=== PATIENT | male | born 1940 | race Caucasian/White ===

== ENCOUNTER 2024-12-25 23:43 | Inpatient (IN) | payer MEDICARE, OTHER, SELFPAY ==
[2024-12-25 23:49] VITALS: BP 126/67; PULSE 112; RESP 18; TEMP 36.2; O2SAT 89; BMI 20.6
[2024-12-26] VITALS (44 sets, daily range): BP systolic 65–162; BP diastolic 37–81; PULSE 90–136; RESP 18–48; TEMP 36.4–37.6; O2SAT 76–96
--- NOTE | 2024-12-26 01:03 | ED_ITS ---
Documented by User: FAY Shelley 12/26/24 01:21 HPI - Abdominal Pain 2 General: Chief Complaint: Abdominal Pain Stated Complaint: ABD PAIN Time Seen by Provider: 12/26/24 00:49 Source: patient Mode of arrival: EMS Limitations: no limitations History of Present Illness: Patient is a nice 84-year-old male who presents to ED today with a complaint of diffuse abdominal pain that started 4 to 5 hours ago. Patient states pain has been significant and constant since onset. He states he has not had any vomiting. He reports previous abdominal surgery of a gastric resection for cancer. No other abdominal surgeries. Patient states he is not having much in the way of bowel movements but states he is also not been eating very much. No fevers. No recent illness. Patient is normally on oxygen-roughly 3L. States he has not had a increase in this at home. He is on 4 -5L during my examination and satting anywhere from 90-96 depending on the waveform but RN was able to titrate this down to his baseline shortly after. He does not feel short of breath. He is not having a cough. States he lives with his at home in a duplex. MD elicited complaint: abdominal pain Pertinent past history: other (gastric cancer) Onset (ago): hour(s) Pain Consistency: constant Location: Diffuse Severity: severe Quality: sharp Radiation: none Migration to: no migration Exacerbating factors: nothing Relieving factors: nothing Associated Symptoms: Denies chills, GI cramping, diarrhea, dysuria, fever(s), heartburn, nausea, syncope and vomiting Related Data Allergies Allergy/AdvReac Type Severity Reaction Status Date / Time No Known Allergies Allergy Verified 12/25/24 23:55 Review of Systems 2 Const: Denies: fever(s), chills, body aches, fatigue or malaise Eyes: Denies: change in vision or blurry vision Card: Denies: chest pain, palpitations, irregular heart rhythm, lightheadedness, syncope or dyspnea on exertion Resp: Denies: dyspnea, productive cough or pain on inspiration GI: Reports: abdominal pain; Denies: nausea, vomiting, heartburn, diarrhea, GI cramping or rectal pain : Denies: flank pain, difficulty urinating or dysuria Musc: Denies: neck pain, back pain, extremity pain, extremity swelling or joint pain Skin/Breast: Denies: rash Neuro: Denies: headache(s) or dizziness Physical Exam 2 Const: COMMON NORMALS: no acute distress, average body habitus, patient oriented x3, no limitations, healthy appearing, alert and well nourished G ENERAL APPEARANCE: cooperative ORIENTATION/CONSCIOUSNESS: Yes awake, Yes oriented to person, Yes oriented to place and Yes oriented to time HENMT: COMMON NORMALS: normocephalic and atraumatic HEAD & SCALP: normal to inspection, normocephalic and atraumatic Neck/C-Spine: COMMON NORMALS: full ROM, no lymphadenopathy, supple and no meningeal signs Chest: COMMONS NORMALS: normal inspection of the chest Resp: COMMON NORMALS: normal respiratory effort and clear to auscultation bilaterally AUSCULTATION: clear to auscultation bilaterally Cardio: COMMON NORMALS: regular rate RATE: regular rate and tachycardic GI: COMMON NORMALS: Normal to inspection, nondistended, normoactive bowel sounds present, Soft to palpation, No hepatosplenomegaly present and no masses INSPECTION: Yes normal to inspection AUSCULTATION: Yes normoactive bowel sounds PALPATION: Yes Soft to palpation, Yes Tenderness to palpation present (GI) (diffusely), Yes Rigid due to palpation and Yes No hepatosplenomegaly present : COMMON NORMALS: Yes no CVA tenderness BLADDER/KIDNEY EXAM: Yes no CVA tenderness Back/Pelvis: COMMON NORMALS: no CVA tenderness and thoracic and lumbar spine normal to inspection Extremity: COMMON NORMALS: normal to inspection, capillary refill normal, no clubbing, cyanosis or edema, no calf tenderness and no pedal edema NARRATIVE EXTREMITY EXAM: feet are cool to the touch but pulses easily palpated GENERAL: Yes normal exam except as noted Neuro: COMMON NORMALS: patient oriented x3, moves all extremities, no focal motor deficits and no sensory deficits noted SENSORIUM/ORIENTATION: Yes alert, Yes oriented to person, Yes oriented to place and Yes oriented to time MENINGEAL SIGNS: Yes no meningeal signs Skin: COMMON NORMALS: no rashes or lesions noted GENERAL SKIN EXAM: no rashes or lesions noted Course 2 Vital Signs: Vital signs: Vital Signs Temperature 97.2 F L 12/25/24 23:49 Pulse Rate 112 H 12/26/24 02:27 Respiratory Rate 30 H 12/26/24 02:27 Blood Pressure 162/73 12/26/24 02:27 Pulse Oximetry 90 12/26/24 02:27 Oxygen Delivery Me thod Nasal Cannula 12/26/24 02:27 Oxygen Flow Rate 3 12/26/24 02:27 MDM - Abdominal Pain Lab Data 12/26/24 00:21 12/26/24 00:21 Labs/Radiology: Radiology Impressions Chest X-Ray 12/26/24 01:03 IMPRESSION: Multifocal bilateral pneumonia. Chest/Abdomen/Pelvis CT 12/26/24 01:38 IMPRESSION: 1. No pulmonary embolism. 2. 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 3. Extensive right lower lobe infiltrate with small airways inflammatory pulmonary nodules right upper lobe possibly from aspiration. IMPRESSION: Small bowel obstruction. Recommend surgical consultation. Laboratory Results WBC 4.40 10^3/uL (3.29-11.43) 12/26/24 00:21 RBC 3.65 10^6/uL (3.85-5.65) L 12/26/24 00:21 Hgb 11.30 g/dL (11.27-16.99) 12/26/24 00:21 Hct 36.3 % (37-53) L 12/26/24 00:21 MCV 99.5 fl (82-101) 12/26/24 00:21 MCH 31.0 pg (27-33) 12/26/24 00:21 MCHC 31.1 g/dL (30-55) 12/26/24 00:21 RDW 13.8 % (12.1-15.1) 12/26/24 00:21 Plt Count 322 10^3/cmm (157-399) 12/26/24 00:21 MPV 9.9 fL (7.4-10.4) 12/26/24 00:21 Neut % (Auto) 89.7 % 12/26/24 00:21 Lymph % (Auto) 7.3 % 12/26/24 00:21 [place] % (Auto) 2.3 % 12/26/24 00:21 Eos % (Auto) 0.0 % 12/26/24 00:21 Baso % (Auto) 0.5 % 12/26/24 00:21 Neut # (Auto) 3.95 10^3/uL (1.8-7.7) 12/26/24 00:21 Lymph # (Auto) 0.3 10^3/uL (0.8-4.8) L 12/26/24 00:21 [place] # (Auto) 0.1 10^3/uL (0.2-0.9) L 12/26/24 00:21 Eos # (Auto) 0.0 10^3/uL (0.0-0.8) 12/26/24 00:21 Baso # (Auto) 0.0 10^3/uL (0.0-0.1) 12/26/24 00:21 Nucleated RBC % (auto) 0 % 12/26/24 00:21 Nucleated RBCs # 0.0 /100WBC 12/26/24 00:21 Specimen Type Arterial 12/26/24 02:55 Sample Site Radial, left 12/26/24 02:55 ABG pH 7.35 (7.35-7.45) 12/26/24 02:55 ABG pCO2 33.4 mmHg (35-45) L 12/26/24 02:55 ABG pO2 55.2 mmHg (80.0-100.0) L 12/26/24 02:55 ABG HCO3 18.3 mmol/L (22-26) L 12/26/24 02:55 ABG Base Excess -6.5 mmol/L (-2.0-2.0) L 12/26/24 02:55 Efra Test Pos 12/26/24 02:55 Hematocrit 36.8 % (42-52) L 12/26/24 02:55 O2 Delivery Device Nc 12/26/24 02:55 O2 Liters/Min 5.0 % 12/26/24 02:55 Machine Stone Polisher ID [id number] 12/26/24 02:55 Sodium 134 mmol/L (136-145) L 12/26/24 00:21 Potassium 3.4 mmol/L (3.5-5.1) L 12/26/24 00:21 Chloride 94 mmol/L (98-107) L 12/26/24 00:21 Carbon Dioxide 18 mmol/L (22-29) L 12/26/24 00:21 Anion Gap 25.4 (5-19) H 12/26/24 00:21 BUN 15 mg/dL (8-23) 12/26/24 00:21 Creatinine 0.7 mg/dL (0.7-1.2) 12/26/24 00:21 GFR Calculation Not Reportable 12/26/24 00:21 Glucose 215 mg/dL (65-115) H 12/26/24 00:21 Calculated Osmolality 285 mOsm/kg (285-295) 12/26/24 00:21 Lactic Acid 3.1 mmol/L (0.5-2.2) H 12/26/24 00:21 Calcium 8.9 mg/dL (8.5-10.5) 12/26/24 00:21 Total Bilirubin 0.4 mg/dL (0.15-1.2) 12/26/24 00:21 AST 20 U/L (0-40) 12/26/24 00:21 ALT 17 U/L (0-41) 12/26/24 00:21 Alkaline Phosphatase 115 U/L (40-130) 12/26/24 00:21 Total Protein 6.3 g/dL (6.6-8.7) L 12/26/24 00:21 Albumin 3.3 g/dL (3.5-5.2) L 12/26/24 00:21 Globulin 3.0 g/dL (1.3-4.6) 12/26/24 00:21 Lipase 165 U/L (13-60) H 12/26/24 00:21 Procalcitonin 0.66 ng/mL (0-0.5) H 12/26/24 00:21 Amorphous Sediment Not Reportable 12/26/24 02:50 Coronavirus (PCR) Negative (Negative) 12/26/24 02:30 Influenza A (PCR) Negative (Negative) 12/26/24 02:30 Influenza Type B (PCR) Negative (Negative) 12/26/24 02:30 RSV (PCR) Negative (Negative) 12/26/24 02:30 Discharge Plan Discharge Patient Disposition: Admitted As Inpatient Admit Provider: Pamela Emerson Clinical Impression: Small bowel obstruction, Abdominal pain, Pneumonia Clinical Impression: (Ruled Out): Pancreatitis Condition: Serious Coding Level of Care Code ED Administrative Office Specialist for Chg Fwd Documented by User: Rei Villarreal DO 12/26/24 03:19 HPI - Abdominal Pain 2 General: Chief Complaint: Abdominal Pain Stated Complaint: ABD PAIN Time Seen by Provider: 12/26/24 00:49 Related Data Allergies Allergy/AdvReac Type Severity Reaction Status Date / Time No Known Allergies Allergy Verified 12/25/24 23:55 Course 2 Vital Signs: Vital signs: Vital Signs Temperature 97.2 F L 12/25/24 23:49 Pulse Rate 112 H 12/26/24 02:27 Respiratory Rate 30 H 12/26/24 02:27 Blood Pressure 162/73 12/26/24 02:27 Pulse Oximetry 90 12/26/24 02:27 Oxygen Delivery Me thod Nasal Cannula 12/26/24 02:27 Oxygen Flow Rate 3 12/26/24 02:27 MDM - Abdominal Pain Medical Decision Making 84-year-old patient recently seen by Mrs. Anne?MIGUEL Serrano. I agree with her history, evaluation, and initial workup. The patient is tachycardic, he has an increased oxygen demand above baseline. Chest x-ray showed multifocal bilateral pneumonia worse on the right, particularly in the base. Blood glucose is 215. Bicarbonate is 18, lactate is 3.1. He is given a sepsis bolus. CT of the chest shows similar findings to the above, with small bowel obstruction findings to the mid small bowel apparent on belly CT. NG tube is placed. Spoke with surgery. Requests maintenance fluid, n.p.o., admission to medicine, and he will consult. Medicine has agreed to admit the patient. He is given Zosyn for pneumonia. Respiratory panel does not reveal COVID, flu, or RSV. Lab Data 12/26/24 00:21 12/26/24 00:21 Labs/Radiology: Radiology Impressions Chest X-Ray 12/26/24 01:03 IMPRESSION: Multifocal bilateral pneumonia. Chest/Abdomen/Pelvis CT 12/26/24 01:38 IMPRESSION: 1. No pulmonary embolism. 2. 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 3. Extensive right lower lobe infiltrate with small airways inflammatory pulmonary nodules right upper lobe possibly from aspiration. IMPRESSION: Small bowel obstruction. Recommend surgical consultation. Laboratory Results WBC 4.40 10^3/uL (3.29-11.43) 12/26/24 00:21 RBC 3.65 10^6/uL (3.85-5.65) L 12/26/24 00:21 Hgb 11.30 g/dL (11.27-16.99) 12/26/24 00:21 Hct 36.3 % (37-53) L 12/26/24 00:21 MCV 99.5 fl (82-101) 12/26/24 00:21 MCH 31.0 pg (27-33) 12/26/24 00: MCHC 31.1 g/dL (30-55) 12/26/24 00: RDW 13.8 % (12.1-15.1) 12/26/24 00:21 Plt Count 322 10^3/cmm (157-399) 12/26/24 00:21 MPV 9.9 fL (7.4-10.4) 12/26/24 00:21 Neut % (Auto) 89.7 % 12/26/24 00: Lymph % (Auto) 7.3 % 12/26/24 00: [place] % (Auto) 2.3 % 12/26/24 00: Eos % (Auto) 0.0 % 12/26/24 00: Baso % (Auto) 0.5 % 12/26/24 00:21 Neut # (Auto) 3.95 10^3/uL (1.8-7.7) 12/26/24 00:21 Lymph # (Auto) 0.3 10^3/uL (0.8-4.8) L 12/26/24 00:21 [place] # (Auto) 0.1 10^3/uL (0.2-0.9) L 12/26/24 00:21 Eos # (Auto) 0.0 10^3/uL (0.0-0.8) 12/26/24 00:21 Baso # (Auto) 0.0 10^3/uL (0.0-0.1) 12/26/24 00:21 Nucleated RBC % (auto) 0 % 12/26/24 00:21 Nucleated RBCs # 0.0 /100WBC 12/26/24 00:21 Specimen Type Arterial 12/26/24 02:55 Sample Site Radial, left 12/26/24 02:55 ABG pH 7.35 (7.35-7.45) 12/26/24 02:55 ABG pCO2 33.4 mmHg (35-45) L 12/26/24 02:55 ABG pO2 55.2 mmHg (80.0-100.0) L 12/26/24 02:55 ABG HCO3 18.3 mmol/L (22-26) L 12/26/24 02:55 ABG Base Excess -6.5 mmol/L (-2.0-2.0) L 12/26/24 02:55 Efra Test Pos 12/26/24 02:55 Hematocrit 36.8 % (42-52) L 12/26/24 02:55 O2 Delivery Device Nc 12/26/24 02:55 O2 Liters/Min 5.0 % 12/26/24 02:55 Machine Stone Polisher ID [id number] 12/26/24 02:55 Sodium 134 mmol/L (136-145) L 12/26/24 00:21 Potassium 3.4 mmol/L (3.5-5.1) L 12/26/24 00:21 Chloride 94 mmol/L (98-107) L 12/26/24 00:21 Carbon Dioxide 18 mmol/L (22-29) L 12/26/24 00:21 Anion Gap 25.4 (5-19) H 12/26/24 00:21 BUN 15 mg/dL (8-23) 12/26/24 00:21 Creatinine 0.7 mg/dL (0.7-1.2) 12/26/24 00:21 GFR Calculation Not Reportable 12/26/24 00:21 Glucose 215 mg/dL (65-115) H 12/26/24 00:21 Calculated Osmolality 285 mOsm/kg (285-295) 12/26/24 00:21 Lactic Acid 3.1 mmol/L (0.5-2.2) H 12/26/24 00:21 Calcium 8.9 mg/dL (8.5-10.5) 12/26/24 00:21 Total Bilirubin 0.4 mg/dL (0.15-1.2) 12/26/24 00:21 AST 20 U/L (0-40) 12/26/24 00:21 ALT 17 U/L (0-41) 12/26/24 00:21 Alkaline Phosphatase 115 U/L (40-130) 12/26/24 00:21 Total Protein 6.3 g/dL (6.6-8.7) L 12/26/24 00:21 Albumin 3.3 g/dL (3.5-5.2) L 12/26/24 00:21 Globulin 3.0 g/dL (1.3-4.6) 12/26/24 00:21 Lipase 165 U/L (13-60) H 12/26/24 00:21 Procalcitonin 0.66 ng/mL (0-0.5) H 12/26/24 00:21 Amorphous Sediment Not Reportable 12/26/24 02:50 Coronavirus (PCR) Negative (Negative) 12/26/24 02:30 Influenza A (PCR) Negative (Negative) 12/26/24 02:30 Influenza Type B (PCR) Negative (Negative) 12/26/24 02:30 RSV (PCR) Negative (Negative) 12/26/24 02:30 All radiology interpretation(s) finalized by discharge Discharge Plan Discharge Patient Disposition: Admitted As Inpatient Admit Provider: Pamela Emerson Clinical Impression: Small bowel obstruction, Abdominal pain, Pneumonia Clinical Impression: (Ruled Out): Pancreatitis Condition: Serious Coding Level of Care Code ED Administrative Office Specialist for Jackson De La Torre
--- NOTE | 2024-12-26 01:03 | XRR_ITS ---
PROCEDURE INFORMATION: Exam: XR Chest Exam date and time: 12/26/2024 1:32 AM Age: 84 years old Clinical indication: Shortness of breath; Prior surgery; Surgery date: 6+ months; Surgery type: Chest port. Gastric resection; Patient HX: SOB with hypoxia. History of gastric cancer. ; Additional info: Ab pain TECHNIQUE: Imaging protocol: Radiologic exam of the chest. Views: 1 view. COMPARISON: No relevant prior studies available. FINDINGS: Tubes, catheters and devices: Chest port. Lungs: Multifocal bilateral consolidation, throughout the right lung as well as at left lower lobe. Pleural spaces: No pleural effusion. No pneumothorax. Heart/Mediastinum: No cardiomegaly. Bones/joints: No acute findings. XR/XR chest 1V portable [id number] IMPRESSION: Multifocal bilateral pneumonia.
[2024-12-26 01:13] LABS: Basophils % 0.5 %; Hematocrit 36.3 % (37-53); Lymphocytes # 0.3 10^3/uL (0.8-4.8); Lymphocytes % 7.3 %; Mean Corpuscular HGB Conc 31.1 g/dL (30-55); Mean Corpuscular Volume 99.5 fl (82-101); Mean Platelet Volume 9.9 fL (7.4-10.4); Monocytes # 0.1 10^3/uL (0.2-0.9); Monocytes % 2.3 %; Neutrophils # 3.95 10^3/uL (1.8-7.7); Neutrophils % 89.7 %; Nucleated Red Blood Cells % 0 %; Platelet Count 322 10^3/cmm (157-399); Red Blood Count 3.65 10^6/uL (3.85-5.65); Red Cell Distribution Width 13.8 % (12.1-15.1)
[2024-12-26] MEDS: morphine 4 mg/mL SDV 1 mL IVP (01:14)
[2024-12-26] MEDS: ondansetron 2 mg/ML SDV 2 mL 4 MG IVP ×2 (01:14→21:06)
--- NOTE | 2024-12-26 01:15 | PC.NURSE ---
MADE PROVIDER AWARE OF CURRENT VS BEFORE GIVING MEDICATIONS. PROVIDER VERIFIED THAT PT WAS STILL ABLE TO GET MEDICATIONS.
[2024-12-26 01:28] LABS: Lactic Sepsis W/Reflex 3.1 mmol/L (0.5-2.2)
[2024-12-26 01:29] LABS: Alanine Aminotransferase 17 U/L (0-41); Albumin Level 3.3 g/dL (3.5-5.2); Alkaline Phosphatase 115 U/L (40-130); Anion Gap 25.4 (5-19); Aspartate Amino Transferase 20 U/L (0-40); Blood Urea Nitrogen 15 mg/dL (8-23); Calcium 8.9 mg/dL (8.5-10.5); Carbon Dioxide 18 mmol/L (22-29); Chloride 94 mmol/L (98-107); Creatinine Clr Calc Pharmacy 75.5974; Glucose 215 mg/dL (65-115); Lipase 165 U/L (13-60); Osmolality Calculated 285 mOsm/kg (285-295); Potassium 3.4 mmol/L (3.5-5.1); Sodium 134 mmol/L (136-145); Total Bilirubin 0.4 mg/dL (0.15-1.2); Total Protein 6.3 g/dL (6.6-8.7)
[2024-12-26 01:36] LABS: Slide Review Slide Review Perform
--- NOTE | 2024-12-26 01:38 | CTR_ITS ---
PROCEDURE INFORMATION: Exam: CTA Chest With Contrast Exam date and time: 12/26/2024 1:47 AM Age: 84 years old Clinical indication: Other: N/a; Abdominal pain; Generalized; Shortness of breath and other: Tachycardia/hypoxia; Prior surgery; Surgery date: 6+ months; Surgery type: Chest port. Gastric resection; Patient HX: SOB with hypoxia and tachycardia. C/O diffuse abd pain. History of gastric cancer. ; Additional info: Tachycardia, SOB, abdominal pain TECHNIQUE: Imaging protocol: Computed tomographic angiography of the chest with contrast. Exam focused on the arteries. 3D rendering (Not supervised by radiologist): MIP and/or 3D reconstructed images were created by the technologist. Radiation optimization: All CT scans at this facility use at least one of these dose optimization techniques: automated exposure control; mA and/or kV adjustment per patient size (includes targeted exams where dose is matched to clinical indication); or iterative reconstruction. Contrast material: OMNI 350; Contrast volume: 100 ml; Contrast route: INTRAVENOUS (IV); COMPARISON: CR (CHEST, ) 12/26/2024 1:32 AM RADIATION DOSE METRICS: Total DLP (mGy-cm): 764.93 FINDINGS: Tubes, catheters and devices: Central line tip terminates in the right atrium. Pulmonary arteries: No pulmonary embolism. Aorta: Unremarkable. No aortic aneurysm. No aortic dissection. Other arteries: Calcified atherosclerotic plaque noted. Lungs: Chronic interstitial changes with subpleural fibrosis and honeycombing noted in keeping with nonspecific interstitial lung disease. Extensive right lower lobe infiltrate with small airways inflammatory pulmonary nodules right upper lobe possibly from aspiration. There is peribronchial thickening with mucous plugging right lower lobe. Pleural spaces: Unremarkable. No pneumothorax. No pleural effusion. Heart: There is mild cardiomegaly. Coronary arteries: There is atherosclerotic calcification coronary arteries. Lymph nodes: Mildly prominent nonspecific mediastinal lymph nodes noted. Stomach: Has been gastrectomy. There is mild circumferential thickening distal esophagus with mild diffuse dilation of the thoracic esophagus. Bones/joints: Old T5 compression fracture with mild loss of vertebral body height. Soft tissues: Unremarkable. PROCEDURE INFORMATION: Exam: CT Abdomen And Pelvis With Contrast Exam date and time: 12/26/2024 1:47 AM Age: 84 years old Clinical indication: Other: N/a; Abdominal pain; Generalized; Shortness of breath and other: Tachycardia/hypoxia; Prior surgery; Surgery date: 6+ months; Surgery type: Chest port. Gastric resection; Patient HX: SOB with hypoxia and tachycardia. C/O diffuse abd pain. History of gastric cancer. ; Additional info: Tachycardia, SOB, abdominal pain TECHNIQUE: Imaging protocol: Computed tomography of the abdomen and pelvis with contrast. Radiation optimization: All CT scans at this facility use at least one of these dose optimization techniques: automated exposure control; mA and/or kV adjustment per patient size (includes targeted exams where dose is matched to clinical indication); or iterative reconstruction. Contrast material: OMNI 350; Contrast volume: 100 ml; Contrast route: INTRAVENOUS (IV); COMPARISON: CR (CHEST, ) 12/26/2024 1:32 AM RADIATION DOSE METRICS: Total DLP (mGy-cm): 764.93 FINDINGS: Liver: Normal. No mass. Gallbladder and biliary ducts: Normal. No calcified stones. No ductal dilation. Pancreas: Normal. No ductal dilation. Spleen: Normal. No splenomegaly. Adrenal glands: Normal. No mass. Kidneys and ureters: Normal. No hydronephrosis. Stomach and bowel: There has been gastrectomy. There are prominently dilated small bowel loops within the central abdomen and left upper quadrant centered about enteroenteric anastomosis. Although a discrete transition point is not definitively identified there is relative transition in the mid small bowel. Distal small bowel loops are decompressed. Small bowel obstruction. Recommend surgical consultation. Appendix: No evidence of appendicitis. Intraperitoneal space: Unremarkable. No free air. No significant fluid collection. Vasculature: Unremarkable. No abdominal aortic aneurysm. Lymph nodes: Unremarkable. No enlarged lymph nodes. Urinary bladder: Unremarkable as visualized. Reproductive: Unremarkable as visualized. Bones/joints: Unremarkable. No acute fracture. Soft tissues: Unremarkable. CT/CT angio chest w abd pel w con IMPRESSION: 1. No pulmonary embolism. 2. 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 3. Extensive right lower lobe infiltrate with small airways inflammatory pulmonary nodules right upper lobe possibly from aspiration. IMPRESSION: Small bowel obstruction. Recommend surgical consultation.
[2024-12-26] MEDS: iohexol 350 mg/mL 500 mL Btl (per mL) IV (01:59)
[2024-12-26 02:06] LABS: Procalcitonin 0.66 ng/mL (0-0.5)
[2024-12-26] MEDS: sodium chloride 0.9% 2,245.29 ML 2245.29 ML IV (02:23)
[2024-12-26] MEDS: piperacillin-tazobactam 4.5 GM in sodium chloride 0.9% (plus) 50 ML IV (02:24)
[2024-12-26 02:57] LABS: Reflex Lactate Order REFLEX LACTIC ORDERD
[2024-12-26 02:58] LABS: Bilirubin Urine Negative (Negative); Blood Urine Negative (Negative); Glucose Urine UA 3+ (Normal); Ketones Urine 2+ (Negative); Leukocyte Esterase Urine Negative (Negative); Nitrate Urine Negative (Negative); Protein Urine Trace (Negative); Urine Appearance Clear (CLEAR); Urine Color Yellow (Yellow); pH Urine 5.5 (5-7)
--- NOTE | 2024-12-26 02:59 | P.HP_ITS ---
Providers/Chief Complaint 2 Admitting Physician: Dr. Emerson Primary Care Provider: Robert Aguilar Chief Complaint: ABD PAIN History of Present Illness Patient normally gets his care at [facility]. Mr. 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 The patient states that he started feeling sharp, 7-8/10 diffuse, lower, abdominal pain aboaut 3pm that became worse. He states that it has been happening for a long time, then it eases off, but this time it did not ease off. With the abdominal pain, he endorses that he became nauseous and had several episodes of emesis. He denies hematemesis, diarrhea, melena, or hematochezia. He states that he has not had a BM in 4 days. He states that he is passing flatus. He endorses intermittent chills, intermittent dizziness, & light headedness. He denies fever, dysuria, hematuria, increased urinary urgency and frequency. In the ED, the patient was tachycardic and tachypneic to 36. Patient initially required 4 to 5 L of O2, but was weaned back to his usual 3L NC. He had no leukocytosis of bandemia, but had a lactic acid of 3.1. His labs were significant for hypokalemia, a gap metabolic acidosis of 22, mildly elevated lipase. His ABG was 7.35/33/55. On arrival to the floor, repeat lactate was 4.1; however, his night nurse stated that he had not completed his sepsis fluids. Nevertheless another 1 L NS was ordered in addition. Lactate reevaluation is ordered for 8 AM. Also his O2 requirements started to increase to 5 L to maintain 91%. Review of Systems 2 Const: Reports: chills; Denies: fever(s) or change in appetite Eyes: Denies: change in vision ENMT: Reports: nasal discharge (chronic); Denies: odynophagia, ear or mastoid pain, ear discharge or nasal congestion Card: Reports: palpitations and lightheadedness; Denies: chest pain or syncope Resp: Reports: dyspnea; Denies: productive cough or wheezing GI: Reports: abdominal pain, nausea, vomiting and constipation; Denies: diarrhea, hematochezia or melena : Denies: difficulty urinating, dysuria, urinary frequency, urinary urgency or hematuria Musc: Denies: joint pain Skin/Breast: Denies: rash or new lesions Neuro: Reports: dizziness and other; Denies: headache(s) Psych: Denies: anxiety, depression, suicidal ideation or homicidal ideation Endo: Denies: cold intolerance or heat intolerance Camacho/Lymph: Reports: easy bruising and easy bleeding Medications/Allergies Allergies Allergy/AdvReac Type Severity Reaction Status Date / Time No Known Allergies Allergy Verified 12/25/24 23:55 PFSH Acute 2 PFSH: Medical History (Updated 12/26/24 @ 07:55 by Pamela Emerson MD) Chronic hypoxic respiratory failure Interstitial lung disease Surgical History History of partial gastrectomy in 08/2024 at [facility] in [place], [place] Social History Smoking and tobacco/nicotine status: former use of tobacco/nicotine Quit status (tobacco/nicotine): has quit using Year quit tobacco: Quit in 1979. Former quit date comment: started smoking at 10yrs. Was smoking 1ppd by age 15 when he joined [employer] Alcohol intake: former Substance/Drug Use: never service: Yes status: Retired status details: 4 yrs in [employer], 20yrs in [employer]. Retired in 1979. branch: [employer] branch details: Both [employer] and [employer] Vitals/I&O/Wt Last Vital Signs Temp 97.2 F L 12/25/24 23:49 Pulse 112 H 12/26/24 02:27 Resp 30 H 12/26/24 02:27 BP 162/73 12/26/24 02:27 Pulse Ox 90 12/26/24 02:27 O2 Del Method Nasal Cannula 12/26/24 02:27 O2 Flow Rate 3 12/26/24 02:27 12/25/24 12/25/24 12/26/24 14:59 22:59 06:59 Intake Total 100 / 100 Balance 100 / 100 Weight last 48 hrs Weight 74.843 kg Physical Exam 2 Const: GENERAL APPEARANCE: cooperative and comfortable; not in distress ORIENTATION/CONSCIOUSNESS: Yes awake, Yes oriented to person, Yes oriented to place and Yes oriented to time HENMT: HEAD & SCALP: normal to inspection, normocephalic and atraumatic N OSE: Normal external nose present EXTERNAL EAR: Yes external ears normal M OUTH: Normal oral and palatal mucosa present THROAT: posterior oropharynx normal Eye: OTHER: PERRL, EOMI, conjunctiva normal bilaterally. Neck/C-Spine: GENERAL: Yes normal visual inspection and Yes trachea midline THYROID: Thyroid normal CAROTIDS: No bruit CERVICAL SPINE: Yes cervical ROM normal Resp: OTHER: Fine inspiratory crackles from the left mid to lower lung arguello. Coarse inspiratory crackles from the right mid to lower lung arguello. Cardio: OTHER: Tachycardia, regular rhythm. No murmurs, rubs, gallops, or clicks. 2+ radial and DP pulses appreciated. No carotid bruits appreciated. GI: OTHER: BS+, tenderness to palpation in the right upper quadrant and right lower quadrant. No rigidity. Indeterminate rebound tenderness. No guarding. No hepatosplenomegaly. An an audible systolic was appreciated in the abdomen concerning for an abdominal aortic aneurysm, but the CT chest abdomen pelvis was negative for an abdominal aortic aneurysm Extremity: GENERAL: No clubbing, No cyanosis and Yes edema Neuro: CRANIAL NERVES: Yes CN normal except as noted SPEECH: speech normal SENSORY EXAM: No sensory level loss detected MOTOR EXAM: 5/5 motor strength present throughout and Normal motor muscle tone present throughout Psych: APPEARANCE: Yes grossly normal ATTITUDE: Yes calm and Yes engaged ACTIVITY/MOTOR BEHAVIOR: Yes appropriate eye contact SPEECH: Yes normal speech MOOD & AFFECT: Yes Other affect and mood findings present (Mildly annoyed because he wanted to sleep.) Skin: GENERAL SKIN EXAM: no rashes or lesions noted Data 12/26/24 00:21 12/26/24 00:21 A&P Assessment and plan (1) Severe sepsis: (2) Small bowel obstruction: (3) Pneumonia: (4) Acute on chronic hypoxic respiratory failure: Plan Mr. 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 #Severe Sepsis: secondary to SBO and R.LL pneumonia #R. lower lobe pneumonia concerning for Aspiration pneumonia #Acute on chronic hypoxic respiratory failure - Continue monitoring O2 sat and wean as tolerated. #Interstitial lung disease: On 2L. He does not know his diagnosis of ILD. When I asked him why he was on O2, he told me that it was because he was told that he needed it. #Lactic acidosis: May be due to hypoxia. Given that it is time he was seen this morning, his abdominal pain had started to improve. Will not start continuous IVF at this time. #Acute SBO: Spoke w/ the Gen Surgeon regarding the rising lactate, despite the improvement in his abdominal pain. #SBO: Gen Surgeon consulted. Continue telemonitoring. Pain control with Dilaudid. #He is on Eliquis, but he does not know why. He last took it yesterday. Will get an echo just to make sure he does not have a bioprosthetic valve. DVT ppx: SCD for now. Code status: I did not ask the patient this question; therefore, he is currently full code. Attestations 2 Medical Necessity Statement*: The patient needs to be hospitalized for greater than 2 midnights for severe sepsis, right lower lobe pneumonia concerning for aspiration pneumonia acute on chronic hypoxic respiratory failure, small bowel obstruction. Time Spent in Patient Care: >70 minutes was spent on patient interview/physical exam, lab/image review, plan formulation and coordination of care. Consultation with specialists-General Surgery. Diagnoses Severe sepsis A41.9; R65.20 Small bowel obstruction K56.609 Pneumonia J18.9 Acute on chronic hypoxic respiratory failure J96.21
[2024-12-26 03:00] LABS: Add Urine Microscopic? YES; Bacteria Urine None Seen /hpf; Hyaline Casts Urine 8.26 /lpf; RBC Urine 0-2 /hpf (0-2); Squamous Epithelial Cell Urine 0-5 /hpf (0-5); Universal Test for UA Present (0); WBC Urine 0-5 /hpf (0-5)
[2024-12-26 03:03] LABS: ABG PCO2 33.4 mmHg (35-45); ABG PH Result 7.35 (7.35-7.45); Arterial Blood Gas Hematocrit 36.8 % (42-52); Base Excess ABG -6.5 mmol/L (-2.0-2.0); Blood Gas Allen Test Pos; Blood Gas Operator Identificat 600455; Blood Gas Sample Site Radial, left; Blood Gas Sample Type Arterial; HCO3 ABG 18.3 mmol/L (22-26); Oxygen Device NC; PO2 ABG 55.2 mmHg (80.0-100.0)
[2024-12-26 03:11] LABS: Covid PCR NEGATIVE (Negative); Influenza A NEGATIVE (Negative); Influenza B NEGATIVE (Negative); Respiratory Syncytial Virus Ce NEGATIVE (Negative)
[2024-12-26 03:32] LABS: Add Urine Culture? No; Calcium Oxalate Crystals Urine 0-4 /hpf; Specific Gravity, Urine 1.041 (1.005-1.030)
[2024-12-26] MEDS: cetacaine Spray 20 gm Can 1 SPRAY TOPICAL (04:45)
[2024-12-26] MEDS: cetacaine Spray 5 gm Can 5 SPRAY (04:49)
[2024-12-26] MEDS: lidocaine 2% Urojet 20 mL TOPICAL (04:49)
--- NOTE | 2024-12-26 05:35 | PC.NURSE ---
pt taken to floor, ng tube attempts were not successful. provider and ms made aware.
--- NOTE | 2024-12-26 05:56 | PC.NURSE ---
NGT This nurse attempted 16fr ngt placement to the right nare, unsuccessful. NGT placement was attempted 3x in ER according to nurse report without success. Dr. Emerson on the floor and notified of unsuccessful NGT placement. Physician voices that general surgery will be consulted. No further NGT attempts at this time.
[2024-12-26] MEDS: sodium chloride 0.9% 1,000 ML 75 ML IV (06:00)
[2024-12-26 06:27] LABS: Lactic Acid level (Lactate) 4.1 mmol/L (0.5-2.2)
--- NOTE | 2024-12-26 07:48 | USCV_ITS ---
Danilo Copeland Age: 84 Gender: M : 1940 Exam Date: 12/26/2024 14:02 Ordering Phys: Pamela Emerson MD Technologist: Freddy Alcaraz [place] [facility] [place]: eval for heart failure BP: 127 / 64 HR: 106 Rhythm: Sinus Technical Quality: Adequate MEASUREMENTS (Male / Female) Normal Values 2D ECHO LV Diastolic Diameter PLAX 3.6 cm 4.2 - 5.9 / 3.9 - 5.3 cm IVS Diastolic Thickness 0.9 cm 0.6 - 1.0 / 0.6 - 0.9 cm IVS Systolic Thickness 0.8 cm LVPW Diastolic Thickness 1.4 cm 0.6 - 1.0 / 0.6 - 0.9 cm LVPW Systolic Thickness 1.6 cm LVOT Diameter 2.0 cm LV Ejection Fraction 2D Teich 67.2 % LV Ejection Fraction MOD 4C 70.9 % LV Ejection Fraction MOD 2C 75.0 % LV Ejection Fraction 2C AL 74.5 % LA Diameter 4.1 cm RA Systolic Volume 4C AL 31.5 ml RA Systolic Volume 4C MOD 31.7 ml LA Sys Volume AL 41.5 cm cubed LA Sys Volume Index AL 21.3 cm cubed/m squared Aorta at Sinotubular Diameter 2.1 cm M-MODE LA Ao Ratio MM 1.0 AV Cusp Separation MM 1.9 cm DOPPLER AV Peak Velocity 120.7 cm/s LVOT Peak Velocity 129.0 cm/s AV Area Cont Eq vti 3.4 cm squared AV Area Cont Eq pk 3.5 cm squared MV Peak Velocity 164.0 cm/s MV Area PHT 14.2 cm squared Mitral E to A Ratio 0.5 TV Peak Velocity 280.3 cm/s TR Peak Velocity 283.0 cm/s TR Peak Gradient 32.0 mmHg TR Mean Velocity 222.0 cm/s TR Mean Gradient 21.8 mmHg TR Velocity Time Integral 63.1 cm PV Peak Velocity 123.0 cm/s RV Ejection Time 0.2 s FINDINGS Left Ventricle Left ventricle is normal in size. LV systolic function is normal with EF of 60-65%. No regional wall motion abnormalities. Grade 1 diastolic dysfunction Right Ventricle Normal in size and function Right Atrium Normal in size Left Atrium Normal in size Mitral Valve Structurally normal mitral valve. Mild mitral regurgitation Aortic Valve Structurally normal aortic valve. No stenosis or regurgitation Tricuspid Valve Mild tricuspid regurgitation. RVSP is normal Pulmonic Valve Not well visualized Pericardium Normal Aorta Normal in size IVC Not well visualized CONCLUSIONS LV systolic function is normal with EF of 60-65% Grade 1 diastolic dysfunction Mild mitral regurgitation Mild tricuspid regurgitation No comparison studies are available. Feliciano Dorman MD (Electronically Signed) Final Date: 26 December 2024 21:37 S
[2024-12-26] MEDS: sodium chloride 0.9% 1,000 ML 999 ML IV (08:36)
--- NOTE | 2024-12-26 08:36 | PHA.VACGOAL ---
Vancomycin Goal - Goal Vancomycin Goal:: 15-20 mg/L Vancomycin Indication:: Pneumonia (sepsis) - Therapy Current therapy:: Azithromycin Day of therpy:: Day [1]of [] . Actual body weight (kg): 72.711 kg - Data Labs: WBC 4.40 10^3/uL (3.29-11.43) 12/26/24 00:21 RBC 3.65 10^6/uL (3.85-5.65) L 12/26/24 00:21 Hgb 11.30 g/dL (11.27-16.99) 12/26/24 00:21 Hct 36.3 % (37-53) L 12/26/24 00: MCV 99.5 fl (82-101) 12/26/24 00: MCH 31.0 pg (27-33) 12/26/24 00: MCHC 31.1 g/dL (30-55) 12/26/24 00: RDW 13.8 % (12.1-15.1) 12/26/24 00:21 Sodium 134 mmol/L (136-145) L 12/26/24 00:21 Potassium 3.4 mmol/L (3.5-5.1) L 12/26/24 00:21 Chloride 94 mmol/L (98-107) L 12/26/24 00: Carbon Dioxide 18 mmol/L (22-29) L 12/26/24 00:21 Anion Gap 25.4 (5-19) H 12/26/24 00: BUN 15 mg/dL (8-23) 12/26/24 00:21 Creatinine 0.7 mg/dL (0.7-1.2) 12/26/24 00:21 GFR Calculation Not Reportable 12/26/24 00:21 Treatment plan:: new consult Regimen:: New start vancomycin for pneumonia/sepsis. No history of vancomycin found. 2000 mg load dose ordered. Started on maintenance dose of 1000 mg q12h based on population based pharmacokinetic nomogram.
--- NOTE | 2024-12-26 09:04 | PC.PHAR ---
Spouse states pt is low on most of these medications and needs to get them refilled through our pharmacy instead of [facility].
[2024-12-26 09:05] LABS: Basophils % 0.8 %; Hematocrit 31.8 % (37-53); Lymphocytes # 0.2 10^3/uL (0.8-4.8); Lymphocytes % 8.4 %; Mean Corpuscular HGB Conc 31.8 g/dL (30-55); Mean Corpuscular Hemoglobin 31.2 pg (27-33); Mean Corpuscular Volume 98.1 fl (82-101); Mean Platelet Volume 9.5 fL (7.4-10.4); Monocytes # 0.1 10^3/uL (0.2-0.9); Monocytes % 2.7 %; Neutrophils # 2.28 10^3/uL (1.8-7.7); Neutrophils % 87.3 %; Nucleated Red Blood Cells % 0 %; Platelet Count 237 10^3/cmm (157-399); Red Blood Count 3.24 10^6/uL (3.85-5.65); White Blood Count 2.61 10^3/uL (3.29-11.43)
[2024-12-26] MEDS: levalbuterol 0.63 mg/3 mL Neb INHALATION ×4 (09:19→15:11)
[2024-12-26] MEDS: ipratropium 0.5 mg/2.5 mL Neb INHALATION ×3 (09:19→15:11)
[2024-12-26 09:26] LABS: Lactate (Lactic Acid level) 2.3 mmol/L (0.5-2.2)
[2024-12-26 09:27] LABS: Alanine Aminotransferase 15 U/L (0-41); Albumin Level 2.6 g/dL (3.5-5.2); Alkaline Phosphatase 87 U/L (40-130); Anion Gap 15.6 (5-19); Aspartate Amino Transferase 19 U/L (0-40); Blood Urea Nitrogen 15 mg/dL (8-23); Calcium 8.2 mg/dL (8.5-10.5); Carbon Dioxide 21 mmol/L (22-29); Chloride 106 mmol/L (98-107); Creatinine Clr Calc Pharmacy 74.7979; Globulin 2.9 g/dL (1.3-4.6); Glucose 152 mg/dL (65-115); Lipase 47 U/L (13-60); Magnesium 1.6 mg/dL (1.7-2.3); Osmolality Calculated 292 mOsm/kg (285-295); Phosphorus 3.2 mg/dL (2.5-4.5); Potassium 3.6 mmol/L (3.5-5.1); Sodium 139 mmol/L (136-145); Total Bilirubin 0.5 mg/dL (0.15-1.2); Total Protein 5.5 g/dL (6.6-8.7)
[2024-12-26] MEDS: docusate sodium 100 mg Capsule 200 MG PO (10:00)
[2024-12-26] MEDS: pantoprazole 40 mg SDV IVP ×2 (10:00→21:00)
[2024-12-26] MEDS: vancomycin 2,000 MG/400 ML PIGGYBACK 200 MG IV (10:00)
[2024-12-26] MEDS: sennosides 8.6 mg Tablet 17.2 MG PO (10:00)
[2024-12-26] MEDS: AZITHROMYCIN ADD-Vantage 500 MG in 0.9% NaCl ADD-Vantage 250 ML 250 MG IV (12:15)
--- NOTE | 2024-12-26 12:53 | P.CONIM_ITS ---
Providers/Reason For Consult 2 Consulting Physician/Specialty*: Dr. Cedric Martines, DO/General Surgery Reason for Consult*: Partial small bowel obstruction Attending Physician: Renay Lane MD Primary Care Provider: Robert Aguilar History of Present Illness History of Present Illness Danilo Copeland is a 84 year old male, who underwent gastrectomy in August 2024 for stomach cancer, reportedly, presented to the hospital with a 3-day history of abdominal pain nausea and vomiting. He reports that he had a bowel movement yesterday and was passing gas. He is unsure if he passed gas today. He reports that he had diffuse abdominal pain that did not radiate. Palpation made the pain worse. His pain has resolved since coming to the hospital. A CT abdomen pelvis shows a small bowel obstruction without a transition point. Also seen on CT is right lower lobe pneumonia, compatible with aspiration pneumonia. Review of Systems 2 General: Reports: 10 or more systems reviewed and unremarkable except in HPI and below Medications/Allergies Home Medications Medication Instructions Recorded Confirmed Last Taken Type apixaban 5 mg tablet (Eliquis) 5 mg PO BID 12/26/24 12/26/24 12/25/24 History empagliflozin 10 mg tablet 10 mg PO QAM 12/26/24 12/26/24 12/25/24 History (Jardiance) iron fumarate,polysacch no.1 130 1 cap PO QAM 12/26/24 12/26/24 12/25/24 History mg-vit C 25 mg-L. casei 30 mg capsule (Fusion) levothyroxine 75 mcg tablet 75 mcg PO QAM 12/26/24 12/26/24 12/25/24 History megestrol 400 mg/10 mL (40 mg/mL) 800 mg PO DAILY 12/26/24 12/26/24 12/25/24 History oral suspension metoprolol succinate 25 mg 25 mg PO QAM 12/26/24 12/26/24 12/25/24 History tablet,extended release 24 hr montelukast 10 mg tablet 10 mg PO QPM 12/26/24 12/26/24 12/25/24 History ondansetron HCl 4 mg tablet 4 mg PO Q6H PRN Nausea 12/26/24 12/26/24 12/25/24 History pantoprazole 40 mg tablet,delayed 40 mg PO BID 12/26/24 12/26/24 12/25/24 History release tamsulosin 0.4 mg capsule 0.4 mg PO QAM 12/26/24 12/26/24 12/25/24 History Allergies Allergy/AdvReac Type Severity Reaction Status Date / Time No Known Allergies Allergy Verified 12/25/24 23:55 Current Medications Generic Name Dose Route Start Last Admin Trade Name Freq PRN Reason Stop Dose Admin Docusate Sodium 200 mg 12/26/24 09:00 12/26/24 10:00 Docusate Sodium 100 Mg Capsule PO 200 mg DAILY ALEX Administration Azithromycin 500 mg/ Sodium 250 mls @ 250 mls/hr 12/26/24 07:15 12/26/24 12:15 Chloride IV 12/30/24 09:59 250 mls/hr Q24H ALEX Administration Protocol Ipratropium [place] 0.5 mg 12/26/24 08:00 12/26/24 11:21 Ipratropium 0.5 Mg/2.5 Ml Neb INHALATION 0.5 mg Q4H.RESPIRATORY ALEX Administration Levalbuterol HCl 0.63 mg 12/26/24 07:53 12/26/24 11:21 Levalbuterol 0.63 Mg/3 Ml Neb INHALATION 0.63 mg Q4H.RESPIRATORY PRN Administration SHORTNESS OF BREATH Pantoprazole Sodium 40 mg 12/26/24 07:45 12/26/24 10:00 Pantoprazole 40 Mg Sdv IVP 40 mg Q12H ALEX Administration Senna 17.2 mg 12/26/24 09:00 12/26/24 10:00 Sennosides 8.6 Mg Tablet PO 17.2 mg DAILY ALEX Administration PFSH Acute 2 PFSH: Medical History Chronic hypoxic respiratory failure Interstitial lung disease Surgical History History of partial gastrectomy in 08/2024 at [facility] in [place], [place] Social History Smoking and tobacco/nicotine status: former use of tobacco/nicotine Quit status (tobacco/nicotine): has quit using Year quit tobacco: Quit in 1979. Former quit date comment: started smoking at 10yrs. Was smoking 1ppd by age 15 when he joined [employer] Alcohol intake: former Substance/Drug Use: never service: Yes status: Retired status details: 4 yrs in [employer], 20yrs in [employer]. Retired in 1979. branch: [employer] branch details: Both [employer] and [employer] Vitals/I&O/Wt Last Vital Signs Temp 98.1 F 12/26/24 11:12 Pulse 109 H 12/26/24 11:30 Resp 20 H 12/26/24 11:21 BP 127/64 12/26/24 11:12 Pulse Ox 90 12/26/24 11:21 O2 Del Method Nasal Cannula 12/26/24 11:21 O2 Flow Rate 5 12/26/24 11:21 12/25/24 12/26/24 12/26/24 22:59 06:59 14:59 Intake Total 2395.29 / 2395.29 2400 / 2400 Output Total 100 / 100 475 / 475 Balance 2295.29 / 2295.29 1925 / 1925 Weight last 48 hrs Weight 160 lb 4.8 oz Weight 165 lb Physical Exam 2 Narrative: General : Patient is well developed , no acute distress, oriented x3 Head : Normal cephalic, a-traumatic. Ears : Pinnae and external canal are normal. Hearing is normal. Eyes : PERRLA, Sclera and injection are normal. No conjunctival discharge. Nose : Mucous membranes are without erythema. Throat : buccal mucosa is normal, gums are without significant recession or hypertrophy. Lungs : Equal chest rise bilaterally, no use of accessory muscles, trachea is midline. Cor : Rate and rhythm are normal. Abdomen : Soft, ND, NT, no g/r/m Extremities : No edema, no cyanosis or clubbing, dorsalis pedis pulses are present bilaterally, non-tender to palpation of calves. Upper extremities are normal bilaterally. Back : non-tender to palpation, no CVA tenderness. Neuro : CN II - XII intact, Upper and lower extremities have equal and full strength Data 12/26/24 08:57 12/26/24 08:57 Micro: Microbiology 12/26/24 02:50 Blood Culture - Preliminary Blood SPECIMEN COLLECTED 12/26/24 02:50 Blood Culture - Preliminary Blood SPECIMEN COLLECTED A&P Assessment and plan (1) Partial small bowel obstruction: (2) Pneumonia: Plan IV fluids at 100 cc/h The patient's abdominal exam is completely benign at this moment, and he reports no nausea. Going to try to avoid an NG tube at this time. Patient reports that they tried 4 times placement in the ER and were unsuccessful. If he becomes nauseous or vomits, will have an NG tube placed to low intermittent wall suction Incentive spirometer Antibiotics per primary Medical management per primary Will follow Coding Level of Care Code 71969 Diagnoses Partial small bowel obstruction K56.600 Pneumonia J18.9
--- NOTE | 2024-12-26 12:59 | XRR_ITS ---
PROCEDURE INFORMATION: Exam: XR Abdomen Exam date and time: 12/26/2024 2:44 PM Age: 84 years old Clinical indication: Bloating; Patient HX: Pneumonia; Abdominal distention; Abdominal pain; Assess for sbo TECHNIQUE: Imaging protocol: Radiologic exam of the abdomen. Views: 2 Views. Upright and supine views. COMPARISON: CT angio chest w abd pel w con 12/26/2024 1:47 AM FINDINGS: Tubes, catheters and devices: Effusion port enters from the right and terminates in SVC. Lungs: Scattered bilateral pulmonary infiltrates, right greater than left. Small right pleural effusion. Gastrointestinal tract: Nonspecific bowel gas pattern. Intraperitoneal space: Normal. No free air. Bones/joints: Unremarkable for age. XR/XR acute abdomen series 12099 IMPRESSION: 1. Pulmonary infiltrates. 2. Nonspecific.
[2024-12-26] MEDS: sodium chloride 0.9% 1,000 ML 100 ML IV (13:41)
[2024-12-26 15:32] LABS: ABG PCO2 31.2 mmHg (35-45); ABG PH Result 7.38 (7.35-7.45); Arterial Blood Gas Hematocrit 33.9 % (42-52); Base Excess ABG -5.8 mmol/L (-2.0-2.0); Blood Gas Allen Test Pos; Blood Gas Sample Site Radial, left; Blood Gas Sample Type Arterial; HCO3 ABG 18.4 mmol/L (22-26)
[2024-12-26] MEDS: methylPREDNISolone sod succ 125 mg/2 mL INJ IVP (15:43)
[2024-12-26] MEDS: FUROsemide 10 mg/mL SDV 2mL 20 MG IVP (15:43)
[2024-12-26] MEDS: meropenem 1,000 mg SDV 1000 MG IVP (16:17)
[2024-12-26 16:32] LABS: Blood Gas Operator Identificat BROMA; Oxygen Device NC
[2024-12-26] MEDS: dexmedeTOMIDine 0.9 % NaCL 400 MCG/100 ML PREMIX IV (17:54)
--- NOTE | 2024-12-26 18:15 | ECG_ITS ---
[facility] Test Date: 2024-12-26 Pat Name: Danilo Copeland Department: Room: [facility] Gender: Male Health Information Director: : 1940 Requested By: Renay Lane Order Number: [id number] Audra MD: Feliciano Dorman M.D. Measurements Intervals [place] Rate: 121 P: 59 VT: 156 QRS: 27 QRSD: 86 T: 54 QT: 307 QTc: 436 Interpretive Statements SINUS TACHYCARDIA No previous ECG available for comparison Electronically Signed On 01-01-2025 13:23:49 EGG PROCESSOR by Feliciano Dorman M.D. [email or web address]
--- NOTE | 2024-12-26 18:24 | PM.CCNAC ---
Critical Care Event Note The high probability of a clinically significant, sudden or life threatening deterioration of the patient's [respiratory,cardiovascular] system(s) required my full and direct attention, intervention and personal management. The critical care time is as shown. This time is in addition to time spent performing any reported procedures but includes the following: [x] Data and vital sign review and interpretation [x] Patient assessment, examination and intervention [x] Documentation [x] Medication orders and management 60 min Critical Care Time Code activated: No Critical Care Time (min): 60 Additional information about critical care time: 84 year old male with a [facility] gastric cancer s/p gastrectomy in Aug 2024, h/o aspiration PNA requiring prolonged admission at OSH in October 2024, it appears patient may have had a PEG tube at one point which was discontinued. does not recall if he had a swallow study in the past. HE was admitted overnight with c/o abdominal pain, nausea and vomiting. CT abdomen showed SBO for which surgery was consulted, appreciate recommendations. Patient on conservative management for now. Additionally he was found to have a significant RLL pneumonia. He is typically on 2lpm supplemental 02 but overnight went to 5lpm. He went abdominal series xrays this afternoon and shortly after returning was in respiratory distress, worsening hypoxia with 02 requirement at 10lpm via oxymask. He is tachypneic RR 40/min, tachycardiac with HR 120/min, BP 130 systolic. 02 sat 80-85% on above. ABG showed hypoxic respiratory failure. NOted LE pitting edema. reports h/o CHF, unknown last EF. Records show he is on ELiquis and states intermittent has taken lasix in the past. Per personal review of X ray images this afternoon. RLL PNA appears worse compared to overnight. Diffuse B/L infiltares appearing worse on right. Blood cx reported + E.coli Plan: Stat ABG with hypoxic resp failure LE pitting edema, concern for fluid overload Stop IVF Lasix 20mg iv now Barron catheter to monitor accurate output Placed on BIpap due to respiratory distress Methylpred 125mg iv x 1 now followed by 30mg iv every 8 hrs - data supports use of corticosteroids with PNA wih high risk of progression. Patient additionally has h/o ? ILD check BNP, troponins , EKG, pending echo start meropenem 1g iv every 8 hrs continue vancomycin and azithromycin as started last night sputum cx and graim stain repeat blood cx Move to icu, not tolerating BIpap- becoming anxious - will start precedex gtt to help alleviate anxiety and maintain [facility]ap [facility] add insulin sliding scale resume anticoagulation with Lovenox 70 mg q12h (typically on eliquis) while he is acutely ill low probability PE given shelter A/c, cta negative from overnight resume levothyroxine and metoprolol Coding Level of Care Code Acute Code for Chg Britt
[2024-12-26] MEDS: HYDROmorphone 1 mg/mL INJ 1 mL 0.5 MG IVP (18:26)
[2024-12-26] MEDS: enoxaparin 80 mg/0.8 mL Syringe 70 MG SUBCUT (18:47)
--- NOTE | 2024-12-26 20:00 | PC.NURSE ---
Addendum entered by Tita Atwood RN 12/27/24 00:36: Attempted to call multiple times- all phone calls from this RN went to voicemail. Original Note: Resp. Distress: Dr. Rojas called @1957 to update on current vitals (HR 126, SpO2 90%, RR 45, BP 121/64) and 100% Fio2 on BiPAP. She reported she will come down to the unit to see the patient.
--- NOTE | 2024-12-26 20:10 | ECG_ITS ---
[facility] Test Date: 2024-12-26 Pat Name: Danilo Copeland Department: Room: [facility]09 Gender: Male Sales Representative Trainee: : 1940 Requested By: Renay Lane Order Number: [id number] Audra MD: Feliciano Dorman M.D. Measurements Intervals [place] Rate: 128 P: 59 GA: 136 QRS: 39 QRSD: 84 T: 67 QT: 404 QTc: 591 Interpretive Statements SINUS TACHYCARDIA NONSPECIFIC T-WAVE ABNORMALITY Compared to ECG 12/26/2024 18:15:21 T-wave abnormality now present Electronically Signed On 01-01-2025 13:58:57 RFID ENGINEER by Feliciano Dorman M.D. [email or web address]
[2024-12-26] MEDS: VANCOMYCIN ADD-Vantage 1,000 MG in 0.9% NaCl ADD-Vantage 250 ML 250 MG IV (20:33)
--- NOTE | 2024-12-26 20:45 | XRR_ITS ---
PROCEDURE INFORMATION: Exam: XR Chest Exam date and time: 12/26/2024 9:00 PM Age: 84 years old Clinical indication: Device placement; Ett placement (vent status); Prior surgery; Surgery date: 6+ months; Surgery type: Chest port. Gastrectomy; Patient HX: Check S/P ett placement; Additional info: Post-intubation TECHNIQUE: Imaging protocol: Radiologic exam of the chest. Views: 1 view. COMPARISON: CT angio chest w abd pel w con 12/26/2024 1:47 AM FINDINGS: Tubes, catheters and devices: Tip of the ET tube is 7.5 cm proximal to the jazmin. Right infusion port tip is in the right atrium. Lungs: Multifocal consolidations in both lungs. Pleural spaces: Unremarkable. No pleural effusion. No pneumothorax. Heart/Mediastinum: Unremarkable. No cardiomegaly. Bones/joints: The thoracic spine demonstrates mild degenerative changes at multiple levels. There are moderate degenerative changes of the glenohumeral joints. Moderate degenerative disease of bilateral acromioclavicular joints. XR/XR chest 1V portable [id number] IMPRESSION: Worsening multifocal consolidations.
[2024-12-26 20:49] LABS: Troponin(5th) Baseline 28 ng/L (0-15)
[2024-12-26] MEDS: midazolam 1 mg/mL INJ 5 ML 5 MG (21:24)
[2024-12-26] MEDS: etomidate 2 mg/mL INJ SDV 10 mL 20 MG IVP (21:24)
[2024-12-26] MEDS: norepinephrine 4 MG/250 ML BAG 30 MG IV (21:33)
[2024-12-26] MEDS: prochlorperazine 10 mg/2 mL Inj IVP (21:36)
[2024-12-26 21:44] LABS: Anion Gap 21.7 (5-19); Blood Urea Nitrogen 17 mg/dL (8-23); Calcium 8.8 mg/dL (8.5-10.5); Carbon Dioxide 20 mmol/L (22-29); Chloride 103 mmol/L (98-107); Glucose 157 mg/dL (65-115); NT Pro B Type Natriuretic Pept 5568 pg/mL (0-450); Osmolality Calculated 297 mOsm/kg (285-295); Potassium 3.7 mmol/L (3.5-5.1); Sodium 141 mmol/L (136-145)
[2024-12-26] MEDS: rocuronium 10 mg/mL INJ 5mL 100 MG IVP (21:47)
[2024-12-26] MEDS: FUROsemide 10 mg/mL SDV 4mL 40 MG IVP (21:55)
[2024-12-26] MEDS: albumin 25 G/100 ML BAG 60 G IV (21:57)
--- NOTE | 2024-12-26 22:07 | XRR_ITS ---
PROCEDURE INFORMATION: Exam: XR Chest Exam date and time: 12/26/2024 10:23 PM Age: 84 years old Clinical indication: Device placement; Ng tube; Prior surgery; Surgery date: 6+ months; Surgery type: Chest port. Gastrectomy; Patient HX: Check S/P og placement. ; Additional info: Confirm og placement TECHNIQUE: Imaging protocol: Radiologic exam of the chest. Views: 1 view. COMPARISON: CR (CHEST, ) 12/26/2024 9:00 PM FINDINGS: Tubes, catheters and devices: Tip of the feeding tube is at the GE junction and needs advancement. ET tube tip is 6 cm proximal to the jazmin. Right infusion port tip is in the right atrium. Lungs: Stable multilobar consolidations. Pleural spaces: Unremarkable. No pleural effusion. No pneumothorax. Heart/Mediastinum: Unremarkable. No cardiomegaly. Bones/joints: Partially included degenerative disease of the glenohumeral joint. XR/XR chest 1V portable [id number] IMPRESSION: Tip of the feeding tube is at the distal esophagus and needs advancement.
[2024-12-26] MEDS: fentaNYL 1,000 MCG/100 ML BAG 5 MCG IV (22:12)
[2024-12-26] MEDS: propofol 1,000 MG/100 ML INJ 4.36 MG IV (22:15)
[2024-12-26 22:21] LABS: ABG PCO2 33.1 mmHg (35-45); ABG PH Result 7.39 (7.35-7.45); Arterial Blood Gas Hematocrit 33.9 % (42-52); Base Excess ABG -4.1 mmol/L (-2.0-2.0); Blood Gas Allen Test Pos; Blood Gas Sample Type Arterial; HCO3 ABG 20.1 mmol/L (22-26); PO2 ABG 63.6 mmHg (80.0-100.0)
[2024-12-26 22:23] LABS: Blood Gas Operator Identificat ED; Blood Gas Sample Site Brachial, right; PO2 FiO2 Ratio Arterial Blood 63
[2024-12-26 22:41] LABS: Glucose Point of Care 147 mg/dL (70-110)
[2024-12-26 22:53] LABS: Troponin 5 2HR 27.74 ng/L (0-15)
[2024-12-26 22:54] LABS: Troponin 5 2HR Delta -0.26 ABS# (0-10)
--- NOTE | 2024-12-26 23:42 | P.ANES_ITS ---
Anesthesia Procedures Procedure/Date: 12/27/24 Endotracheal Intubation by Neida Emerson MD Procedure Narrative: My hands were washed immediately prior to the procedure. I wore a surgical cap, mask with protective eyewear, gown and gloves throughout the procedure. The patient was placed on a principal technologist including continuous pulse oximetry. The patient received 20mg of Etomidate and 4mg of Versed push for induction and 100mg of Rocuronium for adequate paralysis. Using a size 3 laryngoscope (Glidescope) and a size 8cm endotracheal tube with stylet, the patient was intubated on the first attempt. The stylet was removed and cuff balloon was inflated. Appropriate endotracheal tube position was confirmed by direct visualization of vocal cord passage, fogging of the tube, CO2 colormetric indicator and symmetric breath sounds. The tube was secured at 25 cm at the lips and verified w/ CXR. Important to note is that immediately before intubation, the patient had a small amount of emesis, but he needed to be intubated given O2 sats of low 80s despite BiPAP. Immediately After intubation, there was a lot of gastric contents that I suctioned. There was also difficulty inserting the OG tube, so the OG tube was inserted w/ use of the glidescope. The OG tube was located above the diaphragm and there was difficulty advancing it. The patient 's OG tube's location above the diaphragm was discussed w/ the Gen Surgeon, who approved it. It was also kept in low, intermittent suction with approval of the Gen Surgeon.
[2024-12-26 23:57] LABS: Glucose Point of Care 142 mg/dL (70-110)
[2024-12-26] MEDS: insulin lispro 100 unit/1 mL SUBCUT (23:58)
[2024-12-27] VITALS (89 sets, daily range): BP systolic 67–134; BP diastolic 43–82; PULSE 97–143; RESP 20–30; TEMP 37.2–38.7; O2SAT 85–97
--- NOTE | 2024-12-27 00:01 | ECG_ITS ---
[facility] Test Date: 2024-12-27 Pat Name: Danilo Copeland Department: Room: [facility] Gender: Male [place] Administrator: : [id number] Requested By: Renay Lane Order Number: [id number] Audra MD: Feliciano Dorman M.D. Measurements Intervals [place] Rate: 123 P: 0 FL: 0 QRS: 24 QRSD: 81 T: 1 QT: 338 QTc: 485 Interpretive Statements SINUS TACHYCARDIA SEPTAL MYOCARDIAL INFARCTION , PROBABLY OLD [40+ ms Q WAVE IN V1/V2] Compared to ECG 12/26/2024 20:24:33 Ventricular premature complex(es) now present Aberrant conduction of supraventricular beat(s) now present Myocardial infarct finding now present Sinus tachycardia no longer present T-wave abnormality no longer present Electronically Signed On 01-01-2025 13:58:39 EXTENSION SERVICE ADVISOR by Feliciano Dorman M.D. [email or web address]
[2024-12-27] MEDS: ipratropium 0.5 mg/2.5 mL Neb INHALATION ×5 (00:05→15:26)
[2024-12-27] MEDS: levalbuterol 0.63 mg/3 mL Neb INHALATION ×5 (00:05→15:26)
[2024-12-27] MEDS: methylPREDNISolone sod succ 40 mg/mL INJ 30 MG IVP ×2 (00:16→13:32)
[2024-12-27] MEDS: meropenem 1,000 mg SDV 1000 MG IVP ×3 (00:22→15:29)
--- NOTE | 2024-12-27 00:26 | PC.NURSE ---
Restraints: Soft limb bilateral wrist restraints applied 12/27/24.
--- NOTE | 2024-12-27 00:36 | PC.NURSE ---
Intubation: Intubated @6 12/26/[address] Emerson w/ 20mg Etomidiate and 5mg Versed. All medications entered by this RN were verbal orders from Dr. Emerson who remained at the bedside until pts vitals signs were stable. Verabl orders given to increase levophed drip rate faster than protocol.
--- NOTE | 2024-12-27 01:23 | PC.NURSE ---
OG: Difficulty placing OG. Placed by Dr. Emerson. Unable to advance. Order to leave in place at this time.
--- NOTE | 2024-12-27 02:02 | PC.NURSE ---
Versed Drip: Dr. Emerson on unit, requesting that pt be switched from Propofol drip to Versed drip.
[2024-12-27] MEDS: midazolam hcl 100 MG/100 ML BAG IV (02:25)
[2024-12-27 02:28] LABS: MRSA PCR OZH (swab) NOT DETECTED (Negative)
[2024-12-27 02:38] LABS: Troponin 5 6HR 30.36 ng/L (0-15); Troponin 5 6HR Delta 2.36 ng/L (0-12)
--- NOTE | 2024-12-27 02:38 | PC.NURSE ---
Addendum entered by Naz Sarah RN 12/27/24 03:28: witnessed waste Original Note: Waste Wasted 10 ml of fentanyl, witnessed by ERIN Childs.
--- NOTE | 2024-12-27 02:46 | PC.NURSE ---
Addendum entered by Naz Sarah RN 12/27/24 03:28: Witnessed waste. Addendum entered by ISHAN Dorsey 12/27/24 02:47: Witnessed waste of 73 mls of propofol. Original Note: Propofol Waste: 73ml Propofol wasted w/ ERIN Adams
--- NOTE | 2024-12-27 02:51 | PC.NURSE ---
Paralytic: Dr. Emerson at bedside to see pt. Verbal order for Rocuronium drip. Brian monitor applied. Brian 71 TO2 03/04 @9783. See 'MAR' for medication titration.
--- NOTE | 2024-12-27 02:59 | PC.NURSE ---
Addendum entered by ISHAN Dorsey 12/27/24 03:09: Verified dose of versed push with ERIN Rivers Original Note: Versed Push: Verbal order to push 5mg IVP Versed from IV bag from Dr. Emerson at bedside. Double verified 5ml dose w/ ERIN Adams.
[2024-12-27] MEDS: norepinephrine 4 MG/250 ML BAG 67.5 MG IV (03:46)
--- NOTE | 2024-12-27 05:35 | PC.NURSE ---
PO Meds: Unable to give PO meds d/t difficulty placing OG/NG tube. Dr. Rios aware.
[2024-12-27 06:03] LABS: Basophils % 0.5 %; Hematocrit 29.1 % (37-53); Lymphocytes # 0.2 10^3/uL (0.8-4.8); Lymphocytes % 4.3 %; Mean Corpuscular Hemoglobin 31.1 pg (27-33); Mean Corpuscular Volume 97.3 fl (82-101); Mean Platelet Volume 10.3 fL (7.4-10.4); Monocytes # 0.1 10^3/uL (0.2-0.9); Monocytes % 2.5 %; Neutrophils # 3.58 10^3/uL (1.8-7.7); Neutrophils % 90.7 %; Nucleated Red Blood Cells % 0 %; Platelet Count 221 10^3/cmm (157-399); Red Blood Count 2.99 10^6/uL (3.85-5.65); Red Cell Distribution Width 13.7 % (12.1-15.1); White Blood Count 3.95 10^3/uL (3.29-11.43)
[2024-12-27] MEDS: fentaNYL 1,000 MCG/100 ML BAG 10 MCG IV ×2 (06:17→13:58)
[2024-12-27 06:28] LABS: Alanine Aminotransferase 11 U/L (0-41); Albumin Level 2.8 g/dL (3.5-5.2); Alkaline Phosphatase 71 U/L (40-130); Anion Gap 20.2 (5-19); Aspartate Amino Transferase 26 U/L (0-40); Blood Urea Nitrogen 19 mg/dL (8-23); Calcium 8.1 mg/dL (8.5-10.5); Carbon Dioxide 20 mmol/L (22-29); Chloride 104 mmol/L (98-107); Creatinine Clr Calc Pharmacy 74.6108; Globulin 2.4 g/dL (1.3-4.6); Glucose 159 mg/dL (65-115); Magnesium 2.2 mg/dL (1.7-2.3); Osmolality Calculated 298 mOsm/kg (285-295); Potassium 3.2 mmol/L (3.5-5.1); Sodium 141 mmol/L (136-145); Total Bilirubin 0.7 mg/dL (0.15-1.2); Total Protein 5.2 g/dL (6.6-8.7)
[2024-12-27 06:29] LABS: Lipase 7 U/L (13-60)
[2024-12-27] MEDS: norepinephrine 4 MG/250 ML BAG 52.5 MG IV (07:16)
[2024-12-27] MEDS: enoxaparin 80 mg/0.8 mL Syringe 70 MG SUBCUT ×2 (07:17→17:57)
[2024-12-27] MEDS: VANCOMYCIN ADD-Vantage 1,000 MG in 0.9% NaCl ADD-Vantage 250 ML 250 MG IV (07:18)
[2024-12-27 07:44] LABS: Slide Review Slide Review Perform
[2024-12-27 08:26] LABS: Glucose Point of Care 165 mg/dL (70-110)
[2024-12-27] MEDS: pantoprazole 40 mg SDV IVP (08:41)
[2024-12-27] MEDS: AZITHROMYCIN ADD-Vantage 500 MG in 0.9% NaCl ADD-Vantage 250 ML 250 MG IV (08:41)
[2024-12-27] MEDS: acetaminophen 1,000 MG/100 ML PIGGYBACK 400 MG IV (11:49)
[2024-12-27] MEDS: norepinephrine 4 MG/250 ML BAG 45 MG IV (11:57)
[2024-12-27 12:02] LABS: Glucose Point of Care 201 mg/dL (70-110)
[2024-12-27] MEDS: insulin lispro 100 unit/1 mL SUBCUT ×2 (12:06→17:13)
--- NOTE | 2024-12-27 13:08 | PC.NURSE ---
Dr. Martines rounded after hospitalist consult about NG tube. Per Dr. lAvarado order he said to hook NG to low intermittent suction. Witnessed by Mahi' ERIN
--- NOTE | 2024-12-27 14:17 | XR_ITS ---
WS: [id number] Exam: XR chest 1V portable [id number] Date/Time of Exam: 12/27/2024 2:46 PM Reason For Exam: post picc insertion Comparison 12/26/2024. Right-sided PICC line has been placed in hands in the lower one third of the SV C in good position. Widespread infiltrates throughout both lungs show little change since the last st udy. ET tube ends about 6 cm above the jazmin in good position. RIGHT subclavian port ends at the cav oatrial junction. An enteric tube ends with the sideport in the lower esophagus. The tube should be a dvanced another 6 to 7 cm for optimal position. Heart size remains normal. The mediastinum is normal in contour. XR/XR chest 1V portable [id number] IMPRESSION: 1. Right-sided PICC line in satisfactory position ending in the lower one third of the SVC. 2. ET tube and right-sided port both in satisfactory location. 3. Enteric tube with the sideport ending in the lower esophagus. The tube shoul d be advanced another 6 to 7 cm for optimal position. 4. Bilateral pulmonary infiltrates showing little change since the last exam. Results and recommendations were discussed by phone with the patient's nurse Qi jaramillo in the ICU at 3:10 p.m. 12/27/2024.
--- NOTE | 2024-12-27 14:24 | XR_ITS ---
WS: [id number] Exam: XR acute abdomen series [id number] Date/Time of Exam: 12/27/2024 3:30 PM Reason For Exam: sbo Chest x-ray compared to most recent study on the same day at 3:00 p.m. Again noted are widespread pulmonary infiltrates showing no change. No pneumothorax. Right-sided PICC line, Port-A-Cath and ET tube all remain in good position without change. Again noted is an enteric tube with the sideport ending in the region of the lower esophagus as previously described. Heart siz e is stable. Flat and erect abdomen. No sign of bowel obstruction or pneumoperitoneum. Organ margins are obscured. Bony structures are intact. XR/XR acute abdomen series [id number] IMPRESSION: 1. Chest x-ray unchanged when compared to the earlier study on the same day. ET tube, Port-A-Cath and right-sided PICC line all remain in good position. Enter ic tube unchanged in location. 2. No acute abdominal finding.
--- NOTE | 2024-12-27 14:37 | P.PN_ITS ---
Subjective 2 Subjective: Patient's respiratory status decompensated yesterday and he was moved to the ICU and then intubated. Overnight hospitalist reported that he had a small amount of emesis just before intubation. No recorded bowel movements Vitals/I&O/Wt Last Vital Signs Temp 99.1 F 12/27/24 13:41 Pulse 108 H 12/27/24 13:41 Resp 20 H 12/27/24 13:41 BP 117/59 12/27/24 13:41 Pulse Ox 95 12/27/24 13:41 O2 Del Method Mechanical Ventilation 12/27/24 13:41 O2 Flow Rate 10 12/26/24 15:14 FiO2 70 12/27/24 13:24 12/26/24 12/27/24 12/27/24 22:59 06:59 14:59 Intake Total 480.996 / 3130.996 589.000 / 3719.996 1094.458 / 1094.458 Output Total 900 / 1375 2000 / 3375 Balance -419.004 / 1755.996 -1411.000 / 055.425 3796.458 / 1094.458 Weight last 48 hrs Weight 159 lb 3.2 oz Weight 160 lb 4.8 oz Weight 165 lb Physical Exam 2 Narrative: General: Intubated/sedated Abdomen: Soft, mildly distended, mild grimace to palpation diffusely, no guarding Urinary Catheter Management: Barron: Cath Placed During This Visit: yes Reason for Continuing Indwelling Catheter: Accurate Measurement of Urinary Output in Critically Ill Patients Urinary Catheter Date of Insertion: 12/26/24 Urinary Catheter Time of Insertion: 16:00 Data 12/27/24 05:33 12/27/24 05:33 Micro: Microbiology 12/27/24 07:58 Gram Stain - Final Sputum - Endotracheal Tube Aspirate 12/26/24 20:00 Blood Culture - Preliminary Blood SPECIMEN COLLECTED 12/26/24 20:16 Blood Culture - Preliminary Blood SPECIMEN COLLECTED 12/26/24 02:50 Blood Culture - Preliminary Blood Escherichia coli 12/26/24 02:50 Blood Culture - Preliminary Blood Escherichia coli A&P Assessment and plan (1) Partial small bowel obstruction: (2) Pneumonia: Plan Acute abdominal series NG tube to low remittent wall suction. He does not have a stomach. Do not advance NG tube due to risk of anastomotic perforation Reglan 5 mg every 6 hours If no resolution of bowel obstruction, we will likely attempt small bowel follow-through tomorrow Antibiotics per primary Medical management per primary Will follow Attestations 2 Medical Necessity Statement*: Per primary Coding Level of Care Code 40164 Diagnoses Partial small bowel obstruction K56.600 Pneumonia J18.9
--- NOTE | 2024-12-27 14:55 | PICC.NOTE ---
Triple lumen PICC placed to right basilic vein. Referred to vascular access nurse for PICC placement due to use of vasopressors. Risks and benefits discussed and informed consent obtained via phone from pt spouse, Mila. Right arm assessed with right basilic vein measuring 6.7 mm, straight, and apparent best choice for placement. Using sterile technique and MST, right basilic vein accessed x 1 stick. Mid-arm circumference measured 10 cm from right AC 26 cm. Trimmed cath 47 cm with 1 cm external length noted. CXR shows tip in distal SVC, in good position for use per radiologist. Line secured with stat-lock. Insertion site covered with Secureport IV and TSM. Report given to bedside nurse, ERIN Torres.
[2024-12-27] MEDS: metoclopramide 5 mg/mL SDV 2 mL IVP (15:33)
[2024-12-27 15:51] LABS: ABG PCO2 32.7 mmHg (35-45); ABG PH Result 7.42 (7.35-7.45); Alveolar-Arterial Oxygen Gradi 32.3 mmHg (5-10); Arterial Blood Gas Hematocrit 29.2 % (42-52); Base Excess ABG -2.9 mmol/L (-2.0-2.0); Blood Gas Allen Test Pos; Blood Gas Operator Identificat GD; Blood Gas Sample Site Radial, right; Blood Gas Sample Type Arterial; Carboxyhemoglobin 0.8 %THgb (0.4-20.1); HCO3 ABG 21.1 mmol/L (22-26); HGB O2 Sat 96.8 % (95-100); Ionized Calcium Level - ABG 1.1 mmol/L (1.1-1.4); Oxygen Device VENT; Oxygen Saturation ABG 98.6; PO2 FiO2 Ratio Arterial Blood 185; Potassium Level - ABG 2.9 mmol/L (3.5-5.0); Total Hemoglobin 9.5 g/dL (14-18)
[2024-12-27] MEDS: lidocaine 1% 5 ML in potassium chloride premix 100 ML 26.25 ML IV (16:07)
--- NOTE | 2024-12-27 16:12 | PM.TDS ---
Transfer Summary Providers Date of Admission: 12/26/24 03:09 Date of Discharge/Transfer: 12/27/24 Attending Provider at Admission: Pamela Emerson MD Attending Provider at Transfer: Teresa Quintanilla MD Primary Care Provider: Robert Aguilar Transfer Plans: Anticipated date of transfer: 12/27/24. Receiving Facility: [facility]. Receiving Provider: Dr. Ambriz. Diagnoses at Discharge Discharge Diagnosis (1) Partial small bowel obstruction: Status: Acute (2) Pneumonia: Status: Acute Reason for Visit Reason for Visit ABD PAIN Hospital Course Hospital Course Patient normally gets his care at [facility]. Mr. 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 The patient states that he started feeling sharp, 7-8/10 diffuse, lower, abdominal pain aboaut 3pm that became worse. He states that it has been happening for a long time, then it eases off, but this time it did not ease off. With the abdominal pain, he endorses that he became nauseous and had several episodes of emesis. He denies hematemesis, diarrhea, melena, or hematochezia. He states that he has not had a BM in 4 days. He states that he is passing flatus. He endorses intermittent chills, intermittent dizziness, & light headedness. He denies fever, dysuria, hematuria, increased urinary urgency and frequency. In the ED, the patient was tachycardic and tachypneic to 36. Patient initially required 4 to 5 L of O2, but was weaned back to his usual 3L NC. He had no leukocytosis of bandemia, but had a lactic acid of 3.1. His labs were significant for hypokalemia, a gap metabolic acidosis of 22, mildly elevated lipase. His ABG was 7.35/33/55. On arrival to the floor, repeat lactate was 4.1; however, his night nurse stated that he had not completed his sepsis fluids. Nevertheless another 1 L NS was ordered in addition. Lactate reevaluation is ordered for 8 AM. Also his O2 requirements started to increase to 5 L to maintain 91%. He was admitted for severe sepsis secondary to small bowel obstruction and right lower lobe pneumonia. Patient also has a diagnosis of interstitial lung disease however family and patient was unaware of that. He is on home oxygen apparently follows with pulmonology at [place]. Did have a lactic acidosis on admission and abdominal pain. Patient was on Eliquis from home however for unclear reasons. He has been continued on a therapeutic Lovenox at this time. Patient did progressively become hypoxic during hospitalization and required BiPAP. Suspicion for right lower lobe pneumonia and aspiration. Overnight he was intubated. He required 100% FiO2 and various vent settings were switched around and finally was stabilized on pressure control assist control. He is currently on 70% FiO2. He was on 14 mics of Levophed this morning however is now down to 8 mics. Vasopressin was added however did not have to be started. NG tube was attempted and OG tube was attempted overnight by night hospitalist and nurses tried as well however could not get past the diaphragm. At this point it was not reattempted. Discussed with general surgery as well. Ideally would plan for a small bowel series however unable to give contrast due to tube not being in the correct position. Patient has a difficult anatomy. In person discussed with the night hospitalist who stated that patient may have also aspirated some of his vomitus contents. He did vomit immediately prior to intubation. He needs to be evaluated by gastric surgeon and GI, pulmonology for higher level of care. Patient may require bronchoscopy going forward as well. Discussed the above with family. Did put a call out to [facility] in [place] for potential transfer regarding the need for specialized care given the complexity of patient's case. Awaiting callback. Patient at this time is stable for transfer. of note: blood culture positive for e.coli Physical Exam Const: GENERAL APPEARANCE: patient mechanically ventilated HENMT: COMMON NORMALS: normocephalic, atraumatic, external ears normal and Normal external nose present HEAD & SCALP: normal to inspection, normocephalic and atraumatic NOSE: Normal external nose present EXTERNAL EAR: Yes external ears normal MOUTH: Normal oral and palatal mucosa present THROAT: posterior oropharynx normal Eye: OTHER: PERRL, EOMI, conjunctiva normal bilaterally. Neck/C-Spine: COMMON NORMALS: Thyroid normal GENERAL: Yes normal visual inspection and Yes trachea midline THYROID: Thyroid normal CAROTIDS: No bruit CERVICAL SPINE: Yes cervical ROM normal Resp: OTHER: Fine inspiratory crackles from the left mid to lower lung arguello. Cardio: OTHER: Tachycardia, regular rhythm. No murmurs, rubs, gallops, or clicks. 2+ radial and DP pulses appreciated. No carotid bruits appreciated. GI: OTHER: BS+, does not grimace to palpation. Patient is intubated sedated. Hypoactive bowel sounds. Extremity: GENERAL: No clubbing, No cyanosis and Yes edema Neuro: MOTOR EXAM: Other motor observations present (Patient intubated and sedated.) Skin: COMMON NORMALS: no rashes or lesions noted GENERAL SKIN EXAM: no rashes or lesions noted Urinary Catheter Management: Barron: Cath Placed During This Visit: yes Reason for Continuing Indwelling Catheter: Accurate Measurement of Urinary Output in Critically Ill Patients Urinary Catheter Date of Insertion: 12/26/24 Urinary Catheter Time of Insertion: 16:00 TS Data Studies Completed and Pending Pending at discharge Category Date Time Status FL barium swallow modifd [id number] Routine Exams 12/27/24 10:00 Ordered Arterial Blood Gas W/O Coox Routine Lab 12/26/24 22:11 Results Blood Culture Stat Lab 12/26/24 02:50 Results Blood Culture Stat Lab 12/26/24 20:00 Results CBC Auto Diff [Complete Blood Count w/Auto] AM LABS Lab 12/28/24 04:00 Ordered CBC Auto Diff [Complete Blood Count w/Auto] AM LABS Lab 12/29/24 04:00 Ordered CMP [Comprehensive Metabolic Panel] AM LABS Lab 12/28/24 04:00 Ordered CMP [Comprehensive Metabolic Panel] AM LABS Lab 12/29/24 04:00 Ordered MAG [Magnesium] AM LABS Lab 12/28/24 04:00 Ordered MAG [Magnesium] AM LABS Lab 12/29/24 04:00 Ordered PHOS [Phosphorus] AM LABS Lab 12/28/24 04:00 Ordered PHOS [Phosphorus] AM LABS Lab 12/29/24 04:00 Ordered Sputum Culture and Gram Stain Routine Lab 12/27/24 07:58 Results Urine Culture Stat Lab 12/27/24 08:52 Received Vancomycin Trough Timed Lab 12/28/24 06:30 Ordered Completed Studies During Hospitalization Category Date Time Status CTA chest CT abdomen pelvis [CT angio chest w abd pel w Cat Scan 12/26/24 01:38 Completed con] Stat CXRP [XR chest 1V portable [id number]] Routine Exams 12/27/24 14:17 Completed XR acute abdomen series [id number] Routine Exams 12/26/24 12:59 Completed XR acute abdomen series [id number] Routine Exams 12/27/24 14:24 Completed XR chest 1V portable [id number] Stat Exams 12/26/24 20:45 Completed XR chest 1V portable [id number] Stat Exams 12/26/24 22:07 Completed XR chest 1V portable [id number] Urgent Exams 12/26/24 01:03 Completed CV. echo complete* [id number] Routine Ultrasound 12/26/24 07:48 Completed Laboratory Last Values WBC 3.95 10^3/uL (3.29-11.43) 12/27/24 05:33 RBC 2.99 10^6/uL (3.85-5.65) L 12/27/24 05:33 Hgb 9.30 g/dL (11.27-16.99) L 12/27/24 05:33 Hct 29.1 % (37-53) L 12/27/24 05:33 MCV 97.3 fl (82-101) 12/27/24 05:33 MCH 31.1 pg (27-33) 12/27/24 05:33 MCHC 32.0 g/dL (30-55) 12/27/24 05:33 RDW 13.7 % (12.1-15.1) 12/27/24 05:33 Plt Count 221 10^3/cmm (157-399) 12/27/24 05:33 MPV 10.3 fL (7.4-10.4) 12/27/24 05:33 Neut % (Auto) 90.7 % 12/27/24 05:33 Lymph % (Auto) 4.3 % 12/27/24 05:33 [place] % (Auto) 2.5 % 12/27/24 05:33 Eos % (Auto) 0.0 % 12/27/24 05:33 Baso % (Auto) 0.5 % 12/27/24 05:33 Neut # (Auto) 3.58 10^3/uL (1.8-7.7) 12/27/24 05:33 Lymph # (Auto) 0.2 10^3/uL (0.8-4.8) L 12/27/24 05:33 [place] # (Auto) 0.1 10^3/uL (0.2-0.9) L 12/27/24 05:33 Eos # (Auto) 0.0 10^3/uL (0.0-0.8) 12/27/24 05:33 Baso # (Auto) 0.0 10^3/uL (0.0-0.1) 12/27/24 05:33 Nucleated RBC % (auto) 0 % 12/27/24 05:33 Nucleated RBCs # 0.0 /100WBC 12/27/24 05:33 Specimen Type Arterial 12/27/24 15:33 Sample Site Radial, right 12/27/24 15:33 ABG pH 7.42 (7.35-7.45) 12/27/24 15:33 ABG pCO2 32.7 mmHg (35-45) L 12/27/24 15:33 ABG pO2 102.0 mmHg (80.0-100.0) H 12/27/24 15:33 ABG PO2/FiO2 Ratio 185 12/27/24 15:33 ABG HCO3 21.1 mmol/L (22-26) L 12/27/24 15:33 ABG O2 Saturation 98.6 12/27/24 15:33 ABG Base Excess -2.9 mmol/L (-2.0-2.0) L 12/27/24 15:33 Efra Test Pos 12/27/24 15:33 A-a O2 Gradient 32.3 mmHg (5-10) H 12/27/24 15:33 Hematocrit 29.2 % (42-52) L 12/27/24 15:33 Hgb O2 Saturation 96.8 % (95-100) 12/27/24 15:33 Carboxyhemoglobin 0.8 %THgb (0.4-20.1) 12/27/24 15:33 Methemoglobin 1.0 % (0.4-1.5) 12/27/24 15:33 Total Hemoglobin 9.5 g/dL (14-18) L 12/27/24 15:33 Sodium 143.0 mmol/L (131-143) 12/27/24 15:33 Potassium 2.9 mmol/L (3.5-5.0) L 12/27/24 15:33 Glucose 175.0 mg/dL (70-115) H 12/27/24 15:33 Ionized Calcium 1.1 mmol/L (1.1-1.4) 12/27/24 15:33 O2 Delivery Device Vent 12/27/24 15:33 O2 Liters/Min 5.0 % 12/26/24 02:55 FiO2 55.0 % 12/27/24 15:33 PEEP 3.0 cmH20 12/27/24 15:33 Table Worker Packager ID Gd 12/27/24 15:33 Sodium 141 mmol/L (136-145) 12/27/24 05:33 Potassium 3.2 mmol/L (3.5-5.1) L 12/27/24 05:33 Chloride 104 mmol/L (98-107) 12/27/24 05:33 Carbon Dioxide 20 mmol/L (22-29) L 12/27/24 05:33 Anion Gap 20.2 (5-19) H 12/27/24 05:33 BUN 19 mg/dL (8-23) 12/27/24 05:33 Creatinine 0.8 mg/dL (0.7-1.2) 12/27/24 05:33 GFR Calculation Not Reportable 12/27/24 05:33 Glucose 159 mg/dL (65-115) H 12/27/24 05:33 POC Glucose 201 mg/dL (70-110) H 12/27/24 11:59 Calculated Osmolality 298 mOsm/kg (285-295) H 12/27/24 05:33 Lactic Acid 3.1 mmol/L (0.5-2.2) H 12/26/24 00:21 Lactic Acid (Sepsis) 4.1 mmol/L (0.5-2.2) H* 12/26/24 05:55 Lactate 2.3 mmol/L (0.5-2.2) H 12/26/24 08:57 Calcium 8.1 mg/dL (8.5-10.5) L 12/27/24 05:33 Phosphorus 3.0 mg/dL (2.5-4.5) 12/27/24 05:33 Magnesium 2.2 mg/dL (1.7-2.3) 12/27/24 05:33 Total Bilirubin 0.7 mg/dL (0.15-1.2) 12/27/24 05:33 Direct Bilirubin 0.30 mg/dL (0.00-0.30) 12/26/24 08:57 AST 26 U/L (0-40) 12/27/24 05:33 ALT 11 U/L (0-41) 12/27/24 05:33 Alkaline Phosphatase 71 U/L (40-130) 12/27/24 05:33 Troponin T Baseline 28 ng/L (0-15) H 12/26/24 20:16 Troponin T 120 Minute 27.74 ng/L (0-15) H 12/26/24 22:22 Delta Troponin T -0.26 ABS# (0-10) L 12/26/24 22:22 Troponin T Hi Sens 6Hr 30.36 ng/L (0-15) H 12/27/24 02:12 Troponin T Hi Sens 6Hr Delta 2.36 ng/L (0-12) 12/27/24 02:12 NT-Pro-B Natriuret Pep 5568 pg/mL (0-450) H 12/26/24 20:16 Total Protein 5.2 g/dL (6.6-8.7) L 12/27/24 05:33 Albumin 2.8 g/dL (3.5-5.2) L 12/27/24 05:33 Globulin 2.4 g/dL (1.3-4.6) 12/27/24 05:33 Lipase 7 U/L (13-60) L 12/27/24 05:33 Procalcitonin 0.66 ng/mL (0-0.5) H 12/26/24 00:21 Urine Color Yellow (Yellow) 12/26/24 02:50 Urine Appearance Clear (CLEAR) 12/26/24 02:50 Urine pH 5.5 (5-7) 12/26/24 02:50 Ur Specific [place] 1.041 (1.005-1.030) H 12/26/24 02:50 Urine Protein Trace (Negative) A 12/26/24 02:50 Urine Glucose (UA) 3+ (Normal) H 12/26/24 02:50 Urine Ketones 2+ (Negative) H 12/26/24 02:50 Urine Blood Negative (Negative) 12/26/24 02:50 Urine Nitrate Negative (Negative) 12/26/24 02:50 Urine Bilirubin Negative (Negative) 12/26/24 02:50 Urine Urobilinogen 1.0 mg/dL (Negative) 12/26/24 02:50 Ur Leukocyte Esterase Negative (Negative) 12/26/24 02:50 Urine RBC 0-2 /hpf (0-2) 12/26/24 02:50 Urine WBC 0-5 /hpf (0-5) 12/26/24 02:50 Ur Squamous Epith Cells 0-5 /hpf (0-5) 12/26/24 02:50 Calcium Oxalate Crystal 0-4 /hpf H 12/26/24 02:50 Amorphous Sediment Not Reportable 12/26/24 02:50 Urine Bacteria None seen /hpf (NONE) 12/26/24 02:50 Hyaline Casts 8.26 /lpf 12/26/24 02:50 Nasal MRSA (PCR) Not detected (Negative) 12/27/24 01:00 Coronavirus (PCR) Negative (Negative) 12/26/24 02:30 Influenza A (PCR) Negative (Negative) 12/26/24 02:30 Influenza Type B (PCR) Negative (Negative) 12/26/24 02:30 RSV (PCR) Negative (Negative) 12/26/24 02:30 Radiology Impressions Chest/Abdomen/Pelvis CT 12/26/24 01:38 IMPRESSION: 1. No pulmonary embolism. 2. 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 3. Extensive right lower lobe infiltrate with small airways inflammatory pulmonary nodules right upper lobe possibly from aspiration. IMPRESSION: Small bowel obstruction. Recommend surgical consultation. ADDENDUM: 12/26/24 0846 COMMENT: THIS REPORT CONTAINS FINDINGS THAT MAY BE CRITICAL TO PATIENT CARE. The exam findings were verbally communicated by me to YUNIEL REYES via telephone conference at 8:45 AM MOBILE QA TESTER on 12/26/2024. The findings were acknowledged and understood. Chest X-Ray 12/27/24 14:17 IMPRESSION: 1. Right-sided PICC line in satisfactory position ending in the lower one third of the SVC. 2. ET tube and right-sided port both in satisfactory location. 3. Enteric tube with the sideport ending in the lower esophagus. The tube should be advanced another 6 to 7 cm for optimal position. 4. Bilateral pulmonary infiltrates showing little change since the last exam. Results and recommendations were discussed by phone with the patient's nurse María Elena in the ICU at 3:10 p.m. 12/27/2024. Chest/Abdomen X-ray 12/27/24 14:24 IMPRESSION: 1. Chest x-ray unchanged when compared to the earlier study on the same day. ET tube, Port-A-Cath and right-sided PICC line all remain in good position. Enteric tube unchanged in location. 2. No acute abdominal finding. Recent Clincial Data Last Vital Signs Temp 99.0 F 12/27/24 16:00 Pulse 101 H 12/27/24 16:00 Resp 25 H 12/27/24 15:29 BP 104/55 12/27/24 16:00 Pulse Ox 97 12/27/24 16:00 O2 Del Method Mechanical Ventilation 12/27/24 15:26 O2 Flow Rate 10 12/26/24 15:14 FiO2 50 12/27/24 15:57 Vital Signs Temp Pulse Resp BP Pulse Ox O2 Del Method FiO2 12/27/24 16:00 99.0 F 101 H 104/55 97 12/27/24 15:57 50 12/27/24 15:45 107 H 97 12/27/24 15:30 101 H 96 12/27/24 15:29 25 H 96 65 12/27/24 15:26 101 H 25 H 96 Mechanical Ventilation 65 12/27/24 15:15 104 H 94 12/27/24 15:00 107 H 91 12/27/24 14:45 105 H 89/48 92 12/27/24 14:30 106 H 74/46 91 12/27/24 14:15 143 H 113/57 12/27/24 14:00 106 H 116/62 92 12/27/24 13:45 107 H 117/59 95 12/27/24 13:41 99.1 F 108 H 20 H 117/59 95 Mechanical Ventilation 12/27/24 13:30 109 H 117/62 12/27/24 13:30 100.6 F H 12/27/24 13:24 25 H 96 70 12/27/24 13:15 108 H 122/61 96 12/27/24 13:00 110 H 121/60 12/27/24 12:45 110 H 122/57 96 12/27/24 12:30 112 H 125/56 12/27/24 12:15 108 H 117/51 97 12/27/24 12:00 112 H 116/68 97 12/27/24 11:45 108 H 111/59 93 12/27/24 11:36 25 H 96 75 12/27/24 11:33 105 H 25 H 96 Mechanical Ventilation 75 12/27/24 11:30 110 H 110/56 12/27/24 11:15 108 H 101/55 92 12/27/24 11:00 107 H 103/54 12/27/24 10:51 101.3 F H 12/27/24 10:45 108 H 104/51 90 12/27/24 10:30 108 H 102/58 92 12/27/24 10:15 105 H 100/54 95 12/27/24 10:00 105 H 99/56 12/27/24 10:00 25 H 95 75 12/27/24 09:45 106 H 95/55 94 12/27/24 09:30 108 H 99/55 12/27/24 09:17 108 H 100/54 95 12/27/24 09:00 109 H 100/54 94 12/27/24 08:45 110 H 96/60 93 12/27/24 08:30 113 H 103/55 94 12/27/24 08:15 117 H 95/56 96 12/27/24 08:04 112 H 12/27/24 08:00 75 12/27/24 08:00 101.6 F H 110 H 103/60 96 12/27/24 07:55 25 H 95 75 12/27/24 07:50 108 H 25 H 95 Mechanical Ventilation 75 12/27/24 07:45 108 H 103/60 95 12/27/24 07:30 105 H 80/49 94 12/27/24 07:15 109 H 112/64 96 12/27/24 07:00 110 H 112/64 97 12/27/24 06:45 111 H 110/63 96 12/27/24 06:30 113 H 109/54 96 12/27/24 06:15 113 H 106/58 94 12/27/24 06:00 115 H 118/66 93 12/27/24 05:47 75 12/27/24 05:46 101.3 F H 12/27/24 05:45 116 H 118/66 94 12/27/24 05:30 115 H 109/59 93 12/27/24 05:15 116 H 109/59 92 12/27/24 05:00 117 H 107/61 91 12/27/24 05:00 25 H 94 75 12/27/24 04:45 117 H 106/56 91 12/27/24 04:31 116 H 108/59 92 12/27/24 04:16 113 H 106/57 92 Intake & Output/Weight 12/25/24 12/26/24 12/27/24 12/28/24 06:59 06:59 06:59 06:59 Intake Total 2395.29 / 2395.29 3719.996 / 3719.996 1128.958 / 1128.958 Output Total 100 / 100 3375 / 3375 Balance 2295.29 / 2295.29 344.996 / 181.356 7552.958 / 1128.958 Weight 72.711 kg 72.212 kg Vitals Last Vital Signs Temp 99.0 F 12/27/24 16:00 Pulse 101 H 12/27/24 16:00 Resp 25 H 12/27/24 15:29 BP 104/55 12/27/24 16:00 Pulse Ox 97 12/27/24 16:00 O2 Del Method Mechanical Ventilation 12/27/24 15:26 O2 Flow Rate 10 12/26/24 15:14 FiO2 50 12/27/24 15:57 TS Medications Medications Acetaminophen (Acetaminophen 325 Mg Tablet) 650 mg PO Q6H PRN PRN Reason: Mild/Mod Pain Or Temp >/= 101 Chlorhexidine Gluconate (Chlorhexidine Gluconate 4% Btl 118 Ml) 1 applic TOPICAL 0100 [facility] Last Admin: 12/27/24 01:25 Dose: Not Given Docusate Sodium (Docusate Sodium 100 Mg Capsule) 200 mg PO DAILY [facility] Last Admin: 12/27/24 07:57 Dose: Not Given Enoxaparin Sodium (Enoxaparin 80 Mg/0.8 Ml Syringe) 70 mg SUBCUT Q12H [facility] Last Admin: 12/27/24 07:17 Dose: 70 mg Glucagon (Glucagon 1 Mg/Ml Kit 1 Ml) 1 mg IM ONCE PRN; Protocol PRN Reason: Adult Acute Hypoglycemia Nursing Prot. Hydromorphone HCl (Hydromorphone 1 Mg/Ml Inj 1 Ml) 0.5 mg IVP Q4H PRN PRN Reason: MODERATE PAIN Last Admin: 12/26/24 18:26 Dose: 0.5 mg Vancomycin HCl 1,000 mg/ (Sodium Chloride) 250 mls @ 250 mls/hr IV Q12H [facility] Last Infusion: 12/27/24 08:42 Dose: Infused Azithromycin 500 mg/ Sodium (Chloride) 250 mls @ 250 mls/hr IV Q24H [facility]; Protocol Stop: 12/30/24 09:59 Last Infusion: 12/27/24 10:14 Dose: Infused Dexmedetomidine/Sodium Chloride (Precedex) 400 mcg in 100 mls @ 0 mls/hr IV .Q0M [facility]; Protocol Last Titration: 12/26/24 21:26 Dose: 0 mcg/kg/hr, 0 mls/hr Dextrose (D5w) 500 mls @ 0 mls/hr IV ONCE PRN; Protocol PRN Reason: Adult Acute Hypoglycemia Prot Dextrose (D10w) 125 mls @ 750 mls/hr IV PRN PRN; Protocol PRN Reason: Adult Acute Hypoglycemia Nursing Protocol Dextrose (D10w) 250 mls @ 1,000 mls/hr IV PRN PRN; Protocol PRN Reason: Adult Acute Hypoglycemia Nursing Protocol Norepinephrine Bitartrate (Levophed) 4 mg in 250 mls @ 0 mls/hr IV .Q0M [facility]; Protocol Last Titration: 12/27/24 15:52 Dose: 8 mcg/min, 30 mls/hr Fentanyl (Sublimaze) 1,000 mcg in 100 mls @ 0 mls/hr IV .Q0M [facility]; Protocol Last Admin: 12/27/24 13:58 Dose: 100 mcg/hr, 10 mls/hr Midazolam HCl (Versed) 100 mg in 100 mls @ 0 mls/hr IV .Q0M [facility]; Protocol Last Titration: 12/27/24 02:59 Dose: 3 mg/hr, 3 mls/hr Vasopressin (Vasostrict) 40 unit in 100 mls @ 0 mls/hr IV .Q0M [facility]; Protocol Acetaminophen (Acetaminophen) 1,000 mg in 100 mls @ 400 mls/hr IV Q8H [facility] Stop: 12/28/24 03:59 Last Infusion: 12/27/24 12:07 Dose: Infused Lidocaine HCl 5 ml/ Potassium (Chloride) 105 mls @ 26.25 mls/hr IV ONCE ONE Stop: 12/27/24 19:57 Last Admin: 12/27/24 16:07 Dose: 26.25 mls/hr Insulin Human Lispro (Insulin Lispro 100 Unit/1 Ml) 0 unit SUBCUT WM&BEDTIME [facility]; Protocol Last Admin: 12/27/24 12:06 Dose: 4 unit Ipratropium [place] (Ipratropium 0.5 Mg/2.5 Ml Neb) 0.5 mg INHALATION Q4H.RESPIRATORY [facility] Last Admin: 12/27/24 15:26 Dose: 0.5 mg Levalbuterol HCl (Levalbuterol 0.63 Mg/3 Ml Neb) 0.63 mg INHALATION Q4H.RESPIRATORY [facility] Last Admin: 12/27/24 15:26 Dose: 0.63 mg Levothyroxine Sodium (Levothyroxine 75 Mcg Tablet) 75 mcg PO QAM [facility] Last Admin: 12/27/24 07:24 Dose: Not Given Meropenem (Meropenem 1,000 Mg Sdv) 1,000 mg IVP Q8H [facility]; Protocol Last Admin: 12/27/24 15:29 Dose: 1,000 mg Methylprednisolone Sodium Succinate (Methylprednisolone Sod Succ 40 Mg/Ml Inj) 30 mg IVP Q8H [facility] Last Admin: 12/27/24 13:32 Dose: 30 mg Metoclopramide HCl (Metoclopramide 5 Mg/Ml Sdv 2 Ml) 5 mg IVP Q6H [facility] Last Admin: 12/27/24 15:33 Dose: 5 mg Metoprolol Succinate (Metoprolol Succinate Er (24 Hr) 25 Mg Tablet) 25 mg PO QAM [facility] Last Admin: 12/27/24 07:24 Dose: Not Given Naloxone HCl (Naloxone 0.4 Mg/Ml Sdv) 0.1 mg IVP Q2M PRN PRN Reason: OPIATERV Ondansetron HCl (Ondansetron 2 Mg/Ml Sdv 2 Ml) 4 mg IVP Q6H PRN PRN Reason: vomiting, or N/V if npo Last Admin: 12/26/24 21:06 Dose: 4 mg Pantoprazole Sodium (Pantoprazole 40 Mg Sdv) 40 mg IVP Q12H [facility] Last Admin: 12/27/24 08:41 Dose: 40 mg Senna (Sennosides 8.6 Mg Tablet) 17.2 mg PO DAILY [facility] Last Admin: 12/27/24 07:57 Dose: Not Given Tamsulosin HCl (Tamsulosin 0.4 Mg Capsule) 0.4 mg PO QAM [facility] Last Admin: 12/27/24 07:24 Dose: Not Given Discontinued Medications Benzocaine/Butamben/Tetracaine HCl (Cetacaine [place] 20 Gm Can) 1 spray TOPICAL ONCE ONE Stop: 12/26/24 03:08 Last Admin: 12/26/24 04:45 Dose: 1 spray Benzocaine/Butamben/Tetracaine HCl (Cetacaine [place] 5 Gm Can) Confirm Administered Dose 5 spray .ROUTE .STK-MED ONE Stop: 12/26/24 04:05 Last Admin: 12/26/24 04:49 Dose: 5 spray Etomidate (Etomidate 2 Mg/Ml Inj Sdv 10 Ml) 20 mg IVP NOW ONE Stop: 12/26/24 20:46 Last Admin: 12/26/24 21:24 Dose: 20 mg Furosemide (Furosemide 10 Mg/Ml Sdv 2ml) 20 mg IVP ONCE ONE Stop: 12/26/24 15:32 Last Admin: 12/26/24 15:43 Dose: 20 mg Furosemide (Furosemide 10 Mg/Ml Sdv 4ml) 40 mg IVP ONCE ONE Stop: 12/26/24 21:43 Last Admin: 12/26/24 21:55 Dose: 40 mg Furosemide (Furosemide 10 Mg/Ml Sdv 4ml) Confirm Administered Dose 40 mg .ROUTE .STK-MED ONE Stop: 12/26/24 21:54 Sodium Chloride (Sodium Chloride 0.9%) 2,245.29 mls @ 2,245.29 mls/hr 30 ml/kg infuse over 1 hr (2245.29 ml) IV .Q1H ONE Stop: 12/26/24 02:43 Last Infusion: 12/26/24 08:39 Dose: Infused Piperacillin Sod/Tazobactam (Sod 4.5 gm/ Sodium Chloride) 50 mls @ 100 mls/hr IV ONCE ONE; Protocol Stop: 12/26/24 02:13 Last Infusion: 12/26/24 04:48 Dose: Infused Sodium Chloride (Sodium Chloride 0.9%) 1,000 mls @ 75 mls/hr IV .[id number] [facility] Last Infusion: 12/26/24 08:40 Dose: Infused Sodium Chloride (Sodium Chloride 0.9%) 1,000 mls @ 999 mls/hr IV .Q1H1M ONE Stop: 12/26/24 07:36 Last Infusion: 12/26/24 10:07 Dose: Infused Vancomycin HCl (Vancocin) 2,000 mg in 400 mls @ 200 mls/hr IV ONCE ONE Stop: 12/26/24 09:14 Last Infusion: 12/26/24 12:24 Dose: Infused Sodium Chloride (Sodium Chloride 0.9%) 1,000 mls @ 100 mls/hr IV .Q10H ALEX Last Infusion: 12/26/24 15:30 Dose: Infused Propofol (Diprivan) 1,000 mg in 100 mls @ 0 mls/hr IV .Q0M ALEX; Protocol Last Titration: 12/27/24 02:25 Dose: Infused Etomidate (Amidate) Confirm Administered Dose 10 mls @ as directed .ROUTE .STK-MED ONE Stop: 12/26/24 20:54 Albumin Human (Albumin) 25 g in 100 mls @ 60 mls/hr IV ONCE ONE Stop: 12/26/24 23:21 Last Infusion: 12/26/24 23:40 Dose: Infused Albumin Human (Albumin) Confirm Administered Dose 25 g in 100 mls @ as directed .ROUTE .STK-MED ONE Stop: 12/26/24 21:54 Rocuronium [place] 250 mg/ (Sodium Chloride) 250 mls @ 0 mls/hr IV .Q0M ALEX; Protocol Sodium Chloride (Sodium Chloride 0.9%) Confirm Administered Dose 250 mls @ as directed .ROUTE .STK-MED ONE Stop: 12/27/24 02:46 Last Admin: 12/27/24 05:33 Dose: Not Given Iohexol (Iohexol 350 Mg/Ml 500 Ml Btl (Per Ml)) 0 ml IV ONCE ONE Stop: 12/26/24 02:00 Last Admin: 12/26/24 01:59 Dose: 100 ml Levalbuterol HCl (Levalbuterol 0.63 Mg/3 Ml Neb) 0.63 mg INHALATION Q4H.RESPIRATORY PRN PRN Reason: SHORTNESS OF BREATH Last Admin: 12/26/24 15:11 Dose: 0.63 mg Lidocaine HCl (Lidocaine 2% Urojet 20 Ml) 20 ml TOPICAL ONCE ONE Stop: 12/26/24 04:27 Last Admin: 12/26/24 04:49 Dose: 20 ml Methylprednisolone Sodium Succinate (Methylprednisolone Sod Succ 125 Mg/2 Ml Inj) 125 mg IVP ONCE ONE Stop: 12/26/24 15:32 Last Admin: 12/26/24 15:43 Dose: 125 mg Midazolam HCl (Midazolam 1 Mg/Ml Inj 2 Ml) 5 mg IVP ONCE ONE Stop: 12/26/24 20:46 Last Admin: 12/26/24 21:58 Dose: Not Given Midazolam HCl (Midazolam 1 Mg/Ml Inj 5 Ml) Confirm Administered Dose 5 mg .ROUTE .STK-MED ONE Stop: 12/26/24 20:54 Last Admin: 12/26/24 21:24 Dose: 5 mg Morphine Sulfate (Morphine 4 Mg/Ml Sdv 1 Ml) 4 mg IVP ONCE ONE Stop: 12/26/24 01:04 Last Admin: 12/26/24 01:14 Dose: 4 mg Ondansetron HCl (Ondansetron 2 Mg/Ml Sdv 2 Ml) 4 mg IVP ONCE ONE Stop: 12/26/24 01:04 Last Admin: 12/26/24 01:14 Dose: 4 mg Ondansetron HCl (Ondansetron 4 Mg Tablet) 4 mg PO Q6H PRN PRN Reason: NAUSEA Prochlorperazine Edisylate (Prochlorperazine 10 Mg/2 Ml Inj) 10 mg IVP ONCE ONE Stop: 12/26/24 21:21 Last Admin: 12/26/24 21:36 Dose: 10 mg Prochlorperazine Edisylate (Prochlorperazine 10 Mg/2 Ml Inj) Confirm Administered Dose 10 mg .ROUTE .STK-MED ONE Stop: 12/26/24 21:33 Rocuronium [place] (Rocuronium 10 Mg/Ml Inj 5ml) 100 mg IVP ONCE ONE Stop: 12/26/24 21:46 Last Admin: 12/26/24 21:47 Dose: 100 mg Rocuronium [place] (Rocuronium 10 Mg/Ml Inj 5ml) Confirm Administered Dose 100 mg .ROUTE .STK-MED ONE Stop: 12/26/24 21:46 Rocuronium [place] (Rocuronium 10 Mg/Ml Inj 5ml) Confirm Administered Dose 50 mg .ROUTE .TrustYou-MED ONE Stop: 12/27/24 02:40 Last Admin: 12/27/24 05:34 Dose: Not Given Rocuronium [place] (Rocuronium 10 Mg/Ml Inj 5ml) Confirm Administered Dose 200 mg .ROUTE .TrustYou-MED ONE Stop: 12/27/24 02:42 Last Admin: 12/27/24 05:33 Dose: Not Given Allergies No Known Allergies Allergy (Verified 12/25/24 23:55) Home Medications apixaban 5 mg tablet (Eliquis) 5 mg PO BID 12/26/24 [History Confirmed 12/26/24] empagliflozin 10 mg tablet (Jardiance) 10 mg PO QAM 12/26/24 [History Confirmed 12/26/24] iron fumarate,polysacch no.1 130 mg-vit C 25 mg-L. casei 30 mg capsule (Fusion) 1 cap PO QAM 12/26/24 [History Confirmed 12/26/24] levothyroxine 75 mcg tablet 75 mcg PO QAM 12/26/24 [History Confirmed 12/26/24] megestrol 400 mg/10 mL (40 mg/mL) oral suspension 800 mg PO DAILY 12/26/24 [History Confirmed 12/26/24] metoprolol succinate 25 mg tablet,extended release 24 hr 25 mg PO QAM 12/26/24 [History Confirmed 12/26/24] montelukast 10 mg tablet 10 mg PO QPM 12/26/24 [History Confirmed 12/26/24] ondansetron HCl 4 mg tablet 4 mg PO Q6H PRN Nausea 12/26/24 [History Confirmed 12/26/24] pantoprazole 40 mg tablet,delayed release 40 mg PO BID 12/26/24 [History Confirmed 12/26/24] tamsulosin 0.4 mg capsule 0.4 mg PO QAM 12/26/24 [History Confirmed 12/26/24] Discharge Plan Discharge Patient Disposition: Xfer Other Condition: Stable Prescriptions: No Action megestrol 400 mg/10 mL (40 mg/mL) suspension 800 mg PO DAILY ondansetron HCl 4 mg tablet 4 mg PO Q6H PRN (Reason: Nausea) levothyroxine 75 mcg tablet 75 mcg PO QAM tamsulosin 0.4 mg capsule 0.4 mg PO QAM pantoprazole 40 mg tablet,delayed release (DR/EC) 40 mg PO BID montelukast 10 mg tablet 10 mg PO QPM metoprolol succinate 25 mg tablet extended release 24 hr 25 mg PO QAM Eliquis 5 mg tablet 5 mg PO BID Jardiance 10 mg tablet 10 mg PO QAM Fusion 130 mg iron-25 mg-30 mg Capsule 1 cap PO QAM Referrals: Robert Aguilar MD [Primary Care Provider] - Patient Instructions: Opioid Safety Transfer Attestations Time Spent in Transfer Care: greater than 30 min Quality Metrics Clinical Quality Measures [ No reported AMI, CVA or VTE this stay] Coding Level of Care Code 84781 Total time (in minutes) for Discharge: 50 Diagnoses Partial small bowel obstruction K56.600 Pneumonia J18.9
[2024-12-27 17:39] LABS: Glucose Point of Care 216 mg/dL (70-110)
--- NOTE | 2024-12-27 18:29 | PC.NURSE ---
Received transfer to another facility orders. Report called to [facility] 6A room 8983. Report called to [facility], called [place] [facility] who notified Amor Garcia. Called report to amor garcia. awaiting transfer.
--- NOTE | 2024-12-27 19:04 | PC.NURSE ---
Addendum entered by Tita Atwood RN 12/27/24 19:35: Left w/ ground team @1930. Original Note: Ground team/EMS @bedside @1900
== END 2024-12-27 19:30 | disposition short-term general hospital (02) | DRG 871 ==
LOC: ER 12-26 01:47 → MEDSURG 12-26 03:14 → ICU 12-26 16:37
PROVIDERS: Physician Assistant; Student in an Organized Health Care Education/Training Program; Admitting Provider Internal Medicine; Emergency Provider Emergency Medicine; PCP Family Medicine; Visit Provider Internal Medicine
DX: A41.9 Sepsis, unspecified organism (principal); J69.0 Pneumonitis due to inhalation of food and vomit; J96.21 Acute and chronic respiratory failure with hypoxia; K56.600 Partial intestinal obstruction, unspecified as to cause; E87.20 Acidosis, unspecified; J84.9 Interstitial pulmonary disease, unspecified; R65.20 Severe sepsis without septic shock; E87.6 Hypokalemia; Z99.81 Dependence on supplemental oxygen; Z92.21 Personal history of antineoplastic chemotherapy; Z85.028 Personal history of other malignant neoplasm of stomach; Z87.891 Personal history of nicotine dependence; Z90.3 Acquired absence of stomach [part of]; Z79.01 Long term (current) use of anticoagulants
CPT/HCPCS: 36415; 36416; 36573; 36591; 36600; 51702; 71045; 71275; 74022; 74177; 80048; 80051; 80053; 80076; 81001; 82330; 82803; 82805; 82962; 83605; 83690; 83735; 83880; 84100; 84145; 84484; 85025; 87040; 87070; 87077; 87086; 87150; 87186; 87205; 87637; 93005; 93306; 94002; 94003; 94640; 94664; 94799; 96365; 96372; 96374; 96375; 96376; 99285; A4570; C1751; J0131; J0456; J0780; J1171; J1650; J1815; J1940; J2185; J2250; J2270; J2405; J2470; J2543; J2704; J2765; J2919; J3010; J3370; J3372; J3480; J3490; J7030; J7050; J7614; J7644; P9046